=== PATIENT | female | born 2000 | race Caucasian/White ===

== ENCOUNTER 2021-07-25 03:44 | Emergency (ER) | payer OTHER, SELFPAY ==
--- NOTE | ~2021-07-25 | CT_ITS ---
EXAMINATION: CT abdomen pelvis w con INDICATION: Right lower quadrant pain TECHNIQUE: Computed tomographic images of the abdomen and pelvis were obtained after the administrati on of 100 cc of Omnipaque 350 intravenous contrast. The dose-length product (DLP) was 230.22 mGy-cm. Automated exposure control and iterative reconstruction technique were employed. COMPARISON: None available FINDINGS: The lung bases are clear. The heart size is normal. The liver, spleen, pancreas, gallbladde r, and adrenal glands are normal. The kidneys are unremarkable. No pathologically enlarged abdominal or pelvic lymph nodes are identified. There is no free intraperitoneal gas or evidence of bowel obstr uction. The appendix is normal. A large volume of colonic stool is present. There is a small volume of hyperattenuating material in the pelvis. There is a complex cystic lesion of the right adnexa. The visualized osseous structures are unremarkable. IMPRESSION: 1. Complex cystic lesion of the right adnexa with small amount of hyperattenuating fluid in the pelvi s. Findings could reflect ruptured ovarian cyst given the negative test. Follow-up ultrasou nd is recommended. Reviewed, dictated and finalized at location A. [facility] IMPRESSION: 1. Complex cystic lesion of the right adnexa with small amount of hyperattenuat ing fluid in the pelvis. Findings could reflect ruptured ovarian cyst given the negative test. Follow-up ultrasound is recommended.
[2021-07-25 03:56] VITALS: BP 127/94; PULSE 108; RESP 17; TEMP 36.6; O2SAT 97
--- NOTE | 2021-07-25 04:13 | ED.GENADULT ---
HPI - General Adult General Chief complaint: [employer]IDENT[employer] Stated complaint: abd pain and cramping Time Seen by Provider: 07/25/21 03:55 History of Present Illness HPI narrative: Is a 18-year-old female presents the emergency department with chief complaint of abdominal pain. Patient reports that this evening she had and reports around 1 AM and was not having any pain she went to sleep woke up around 3 AM with severe cramping in her low pelvis in her vaginal area. Patient denies bleeding denies discharge. Patient reports her last menstrual period was approximately 2 and half weeks ago patient states that said no fever no nausea reports the pain is worse with movement and improved with rest Related Data Allergies Allergy/AdvReac Type Severity Reaction Status Date / Time No Known Allergies Allergy Verified 07/25/21 04:00 Review of Systems Review of Systems: A 10 system review of systems was completed on the patient and is negative except for what is stated in the HPI. Nursing and ancillary documentation was reviewed. PMFSH Social History Social History Smoking status: Never smoker Alcohol intake: never Exam Narrative: GENERAL: Well-appearing, well-nourished, and in no acute distress. HEAD: Normocephalic, atraumatic. EYES: PERRLA and EOMI. ENT: Nares clear, no rhinorrhea or epistaxis. Mucous membranes moist. NECK: Supple. CHEST: Clear to auscultation. No respiratory distress. HEART: Regular rate and rhythm. No murmur heard. Normal peripheral pulses. ABDOMEN: Soft, diffuse tenderness in the pelvis worse in the right lower quadrant, nondistended, normal active bowel sounds. EXTREMITIES: Normal range of motion. No edema. SKIN: Warm, dry, no rash. NEURO: No focal deficits. Alert and oriented x3. PSYCH: Normal mood and affect. Course Course Emergency Course: CT scan showed evidence of a 2 cm ruptured ovarian cyst Vital Signs Vital signs: Vital Signs Temperature 36.6 C 07/25/21 03:56 Pulse Rate 108 H 07/25/21 03:56 Respiratory Rate 17 07/25/21 03:56 Blood Pressure 127/94 H 07/25/21 03:56 Pulse Oximetry 97 07/25/21 03:56 Temperature 36.6 C 07/25/21 03:56 Pulse Rate 78 07/25/21 05:21 Respiratory Rate 17 07/25/21 05:21 Blood Pressure 100/70 07/25/21 05:21 Pulse Oximetry 97 07/25/21 05:21 Medical Decision Making Vital Signs Vital Signs: Vital Signs Temperature 36.6 C 07/25/21 03:56 Pulse Rate 108 H 07/25/21 03:56 Respiratory Rate 17 07/25/21 03:56 Blood Pressure 127/94 H 07/25/21 03:56 Pulse Oximetry 97 07/25/21 03:56 Temperature 36.6 C 07/25/21 03:56 Pulse Rate 78 07/25/21 05:21 Respiratory Rate 17 07/25/21 05:21 Blood Pressure 100/70 07/25/21 05:21 Pulse Oximetry 97 07/25/21 05:21 Lab Data Result diagrams: 07/25/21 04:16 07/25/21 04:16 Labs: Lab Results 07/25/21 07/25/21 07/25/21 Range/Units 04:16 04:16 04:16 WBC 9.3 (4.5-10.0) K/mm3 RBC 4.03 L (4.2-5.4) M/mm3 Hgb 12.6 (12.0-15.0) g/dL Hct 36.2 L (37.0-47.0) % MCV 89.8 (80-100) fl MCH 31.3 (26-34) pg MCHC 34.8 (32-36) g/dl RDW 11.8 (11.5-14.5) % Plt Count 268 (150-375) k/mm3 MPV 10.0 (7.4-10.4) fl Immature Gran % (Auto) 0.1 (0-0.5) % Neut % (Auto) 50.1 (45.5-73.1) % Lymph % (Auto) 38.9 (18.3-44.2) % [place] % (Auto) 6.3 (2.6-8.5) % Eos % (Auto) 3.8 (0-4.4) % Baso % (Auto) 0.8 (0.2-1.2) % Lymph # (Auto) 3.61 H (0.9-3.2) K/mm3 [place] # (Auto) 0.6 (0.1-0.6) K/mm3 Eos # (Auto) 0.4 H (0-0.3) K/mm3 Baso # (Auto) 0.1 (0.0-0.1) K/mm3 Abs Immat Gran (auto) 0.01 (0.00-0.031) K/mm3 Absolute Neuts (auto) 4.7 (1.3-6.7) K/mm3 Absolute Nucleated RBC 0.0 (0.0-0.012) K/mm3 Nucleated RBC % 0.0 (0.0-0.2) % Sodium 139 (137-145) mmol/L Potassium 4.0 (3.4-5.0) mmol/L Chloride 105
[2021-07-25] MEDS: ONDANSETRON INJ 4 MG/2 ML VIAL IV PUSH (04:14)
[2021-07-25] MEDS: SODIUM CHLORIDE 0.9% IV 1,000 ML 999 ML IV CONT (04:14)
[2021-07-25] MEDS: MORPHINE SULFATE (*CRX) 4 MG/ML INJ IV PUSH (04:14)
[2021-07-25 04:26] LABS: Basophils Absolute Auto 0.1 K/mm3 (0.0-0.1); Basophils Percent Auto 0.8 % (0.2-1.2); Eosinophils Absolute Auto 0.4 K/mm3 (0-0.3); Eosinophils Percent Auto 3.8 % (0-4.4); Hematocrit 36.2 % (37.0-47.0); Hemoglobin 12.6 g/dL (12.0-15.0); Immature Granulocyte Absolute 0.01 K/mm3 (0.00-0.031); Immature Granulocyte Percent A 0.1 % (0-0.5); Lymphocytes Absolute Auto 3.61 K/mm3 (0.9-3.2); Lymphocytes Percent Auto 38.9 % (18.3-44.2); Mean Corpuscular HGB Conc 34.8 g/dl (32-36); Mean Corpuscular Hemoglobin 31.3 pg (26-34); Mean Corpuscular Volume 89.8 fl (80-100); Monocytes Absolute Auto 0.6 K/mm3 (0.1-0.6); Monocytes Percent Auto 6.3 % (2.6-8.5); Neutrophils Absolute Auto 4.7 K/mm3 (1.3-6.7); Neutrophils Percent Auto 50.1 % (45.5-73.1); Platelet Count Result 268 k/mm3 (150-375); Red Blood Count 4.03 M/mm3 (4.2-5.4); Red Cell Distribution Width 11.8 % (11.5-14.5); White Blood Count 9.3 K/mm3 (4.5-10.0)
[2021-07-25 04:34] LABS: Add Urine Microscopic? YES; Appearance Urine Clear (Clear); Bilirubin Urine Negative (Negative); Blood Urine Negative (Negative); Color Urine Yellow (Yellow); Glucose Urine UA Negative (Negative); Ketones Urine Trace mg/dL (Negative); Leukocyte Esterase Ur Negative LEU/UL (Negative); Mucus Urine Rare /lpf; Nitrate Urine Negative (Negative); Protein Urine Negative (Negative); RBC Urine 0-2 /hpf (0-2); Specific Grav Ur 1.014 (1.001-1.035); Squamous Epithelial Cell Urine Rare /hpf (Few); Urobilinogen Urine Negative mg/dL (<2.0); WBC Urine 0-3 /hpf
[2021-07-25 04:36] LABS: Alanine Aminotransferase 12 U/L (4-35); Albumin Level 4.7 g/dL (3.5-5.1); Alkaline Phosphatase 59 U/L (38-126); Anion Gap 14 mmol/L (8-16); Aspartate Amino Transferase 22 U/L (14-36); Bilirubin,Total 0.3 mg/dL (0.2-1.3); Blood Urea Nitrogen 11 mg/dL (7-17); Calcium 9.4 mg/dL (8.4-10.2); Carbon Dioxide 20 mmol/L (22-30); Chloride 105 mmol/L (98-107); Estimated CRCL calculation 132 ml/min; Estimated Glomerular Filt Rate > 60; Glucose 92 mg/dL (65-110); Lipase 49 U/L (23-300); Sodium 139 mmol/L (137-145)
--- NOTE | 2021-07-25 04:39 | PC.NURSE ---
Patient being taken to CT via stretcher.
[2021-07-25 05:21] VITALS: BP 100/70; PULSE 78; RESP 17; O2SAT 97
[2021-07-25 06:18] VITALS: BP 94/67; PULSE 88; RESP 17; O2SAT 98
== END 2021-07-25 06:20 | disposition home or self-care (01) ==
PROVIDERS: Emergency Provider Emergency Medicine; PCP Family Medicine
DX: N83.201 Unspecified ovarian cyst, right side (principal)
CPT/HCPCS: 36415; 74177; 80053; 81001; 81025; 83690; 85025; 96361; 96374; 96375; 99284; J2270; J2405; J7030; Q9967

== ENCOUNTER 2024-10-02 11:51 | Emergency (ER) | payer OTHER, SELFPAY ==
--- NOTE | ~2024-10-02 | CT_ITS ---
EXAMINATION: CT brain wo con DATE: 10/02/2024 13:02 INDICATION: Visual changes TECHNIQUE: Computed tomography (CT) of the head was performed without intravenous contrast. Sagittal and coronal reconstructions were performed. The mA was adjusted according to patient size. Iterative reconstruction technique was employed. The dose-length product was 605.33 mGy-cm. COMPARISON: None FINDINGS: No acute intracranial hemorrhage, acute infarction or abnormal extra axial fluid collection. Ventricl es are normal and symmetric. No mass/mass effect. There is mucosal thickening in the left ethmoid sin us. The orbits and mastoid air cells are normal. IMPRESSION: 1. Normal brain. No acute intracranial process. Reviewed, dictated and finalized at location A. [employer]
[2024-10-02 12:13] VITALS: BP 133/99; PULSE 86; RESP 16; TEMP 36.4; O2SAT 100
[2024-10-02 13:20] VITALS: BP 129/92; PULSE 68; RESP 14; O2SAT 100
[2024-10-02 13:30] VITALS: BP 126/85; PULSE 68; RESP 16; O2SAT 100
--- NOTE | 2024-10-02 13:31 | ED.GENADULT ---
HPI - General Adult General Chief complaint: Eye Problems Stated complaint: Hypertension, partial vision loss Rt eye Time Seen by Provider: 10/02/24 12:33 History of Present Illness HPI narrative: Patient is a 24-year-old female who presents emergency department with chief complaint of visual changes and blood pressure. Patient reports that 10:00 a.m. this morning she noticed she had dark line her visual field patient reports in the central portion of her eye patient reports that her periphery is normal and reports that she also did have some floaters of limits initial cardiac does have improved patient reports no eye trauma reports that she wears glasses but reports that her vision is otherwise normal patient states that she has had no trauma does report that her blood pressure was elevated when she was at work today and noticed that she has had a little bit of a runny nose. Related Data Home Medications ?Medication ?Instructions ?Recorded ?Confirmed ?Last Taken ?Type escitalopram oxalate 10 mg tablet 10 mg PO DAILY 10/02/24 10/02/24 10/02/24 History (Lexapro) omeprazole 40 mg capsule,delayed 40 mg PO DAILY 10/02/24 10/02/24 10/02/24 History release Allergies Allergy/AdvReac Type Severity Reaction Status Date / Time No Known Allergies Allergy Verified 10/02/24 13:31 Review of Systems Review of Systems: A 10 system review of systems was completed on the patient and is negative except for what is stated in the HPI. Nursing and ancillary documentation was reviewed. [facility] Social History Social History Smoking status: Never smoker Alcohol intake: never Exam Narrative: GENERAL: Well-appearing, well-nourished, and in no acute distress. HEAD: Normocephalic, atraumatic. EYES: PERRLA and EOMI. Negative fluorescein uptake intra-ocular pressures 10 visual acuity is 2019 in the right eye 2024 in the left eye ENT: Nares clear, no rhinorrhea or epistaxis. Mucous membranes moist. NECK: Supple. CHEST: Clear to auscultation. No respiratory distress. HEART: Regular rate and rhythm. No murmur heard. Normal peripheral pulses. ABDOMEN: Soft, nontender, nondistended, normal active bowel sounds. EXTREMITIES: Normal range of motion. No edema. SKIN: Warm, dry, no rash. NEURO: No focal deficits. Alert and oriented x3. PSYCH: Normal mood and affect. Course Vital Signs Vital signs: Vital Signs Temperature 36.4 C L 10/02/24 12:13 Pulse Rate 86 10/02/24 12:13 Respiratory Rate 16 10/02/24 12:13 Blood Pressure 133/99 H 10/02/24 12:13 Pulse Oximetry 100 10/02/24 12:13 Oxygen Delivery Room Air 10/02/24 12:13 Temperature 36.4 C L 10/02/24 12:13 Pulse Rate 76 10/02/24 15:00 Respiratory Rate 16 10/02/24 15:00 Blood Pressure 111/74 10/02/24 15:00 Pulse Oximetry 98 10/02/24 15:00 Oxygen Delivery Room Air 10/02/24 12:13 Medical Decision Making MDM Narrative Medical decision making narrative: Differential diagnosis includes retinal detachment, this stroke artery occlusion, corneal abrasion, acute angle closure glaucoma CT head showed no acute abnormality There was no fluorescein uptake Interocular pressure was 10 Visual acuity was 2020 in the right eye The case was discussed with the ophthalmology resident at [facility] who then recommended the patient be transferred to the emergency department for ophthalmological evaluation. The case was accepted by Dr. Gong The patient was offered EMS transfer and chose to have her drive her to the u er Vital Signs Vital Signs: Vital Signs Temperature 36.4 C L 10/02/24 12:13 Pulse Rate 86 10/02/24 12:13 Respiratory Rate 16 10/02/24 12:13 Blood Pressure 133/99 H 10/02/24 12:13 Pulse Oximetry 100 10/02/24 12:13 Oxygen Delivery Room Air 10/02/24 12:13 Temperature 36.4 C L 10/02/24 12:13 Pulse Rate 76 10/02/24 15:00 Respiratory Rate 16 10/02/24 15:00 Blood Pressure 111/74 10/02/24 15:00 Pulse Oximetry 98 10/02/24 15:00 Oxygen Delivery Room Air 10/02/24 12:13 Discharge Plan Discharge Clinical Impression: Visual changes Patient Disposition: Acute Care Hospital Condition: Stable Patient Language: Armenian Prescriptions: No Action omeprazole 40 mg capsule,delayed release(DR/EC) 40 mg PO DAILY escitalopram oxalate [Lexapro] 10 mg tablet 10 mg PO DAILY Follow-up/Referrals: Tamar,Ed Garcia MD [Primary Care Provider] - Time of Disposition: 13:52
[2024-10-02 14:00] VITALS: BP 127/79; PULSE 81; RESP 16; O2SAT 99
[2024-10-02 14:30] VITALS: BP 126/90; PULSE 68; RESP 16; O2SAT 100
[2024-10-02 15:00] VITALS: BP 111/74; PULSE 76; RESP 16; O2SAT 98
--- OUTSIDE RECORDS SUMMARY | 2024-10-04 00:09 | XMS_ITS | Clinical Summary ---
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 ur Negative Negative MARY KAY Comment:Testing performed by : [address], [place]., [address] Blood, ur 2+(A) Negative MARY KAY Comment:Testing performed by : [address], [place]., [address] Urobilinogen, ur <2.0 <2.0 mg/dL MARY KAY Comment:Testing performed by : [address] [address] Nitrite, ur Negative Negative MARY KAY Comment:Testing performed by : [address] [address] Leukocyte esterase, ur 2+(A) Negative MARY KAY Comment:Testing performed by : [address] [address] UA reflex comment Reflex to microscopic UA will be performed. MARY KAY Comment:Testing performed by : [address] [address] Urine 07/19/2024 7:07 PM AREA SUPERVISOR 07/19/2024 7:10 PM AREA SUPERVISOR Narrative MARY KAY - 07/19/2024 7:25 PM AREA SUPERVISOR If patient unable to urinate, straight cath Ambrosio Conner DO LAB MICROBIOLOGY - GENERAL ORD ERABLES Final Result Performing Organization Address [facility] Co de Phone Number MARY KAY [facility] [place] [address] * (ABNORMAL) Urinalysis, microscopic only (07/19/2024 7:07 PM AREA SUPERVISOR) WBC, ur 11-20(A) 0 - 5 /HPF Comment:Testing performed by : [facility], [address] [place] [address], [place]., [address] RBC, ur 3-5(A) 0 - 2 /HPF MARY KAY Comment:Testing performed by : [address], [place]., [address] Epithelial cells, squamous, ur >50(A) 0 - 5 /HPF MARY KAY Comment:Testing performed by : [facility], [address] [place] [address], [place]., [address] Mucous, ur Present(A) MARY KAY Comment:Testing performed by : [address], [place]., [address] Culture Reflex Comment Reflex to urine culture will be performed. MARY KAY Comment:Testing performed by : [address], [place]., [address] Urine 07/19/2024 7:07 PM AREA SUPERVISOR 07/19/2024 7:15 PM AREA SUPERVISOR us Ambrosio Conner DO LAB URINE ORDERABLES Final Res ult Performing Organization Address [facility] Co de Phone Number MARY KAY [facility] [place] [address] * Urine culture Urine (07/19/2024 7:07 PM AREA SUPERVISOR) Report Final Report: Growth indicative of contamination with periurethral triny. Please submit a new specimen with special attention given to the collection process and to prompt transport to the laboratory. Comment:Testing performed by : [facility], [address] [facility], [place]., [address] Organism GROWTH INDICATES CONTAM WITH PERIURETHRAL TRINY. MARY KAY Urine 07/19/2024 7:07 PM AREA SUPERVISOR 07/19/2024 9:16 PM AREA SUPERVISOR Narrative MARY KAY - 07/21/2024 1:29 PM AREA SUPERVISOR Urine culture reflexed based upon urinalysis results. Testing performed by [facility] Microbiology Laboratory ([phone]) Ambrosio Conner DO LAB MICROBIOLOGY - GENERAL ORD ERABLES Final Result Performing Organization Address [facility] de Phone Number [place] [address] [place] [address] * Sepsis Lactate w/ Reflex (07/19/2024 6:59 PM AREA SUPERVISOR) Sepsis Lactate 0.8 0.7 - 2.0 mmol/L Comment:Testing performed by : [facility], [address] [place] [address]., [address] Blood 07/19/2024 6:59 PM AREA SUPERVISOR 07/19/2024 7:08 PM AREA SUPERVISOR Ambrosio Conner DO LAB BLOOD ORDERABLES Final Res ult Performing Organization Address [facility] de Phone Number [address] [place] [address] * eGFR (07/19/2024 6:59 PM AREA SUPERVISOR) eGFR >90 >=60 mL/min/1. 73 m2 Comment: Interpretive Data Reference Interval Normal ?>/= 90 mL/min/1.73m2 Mildly decreased* ? 60 - 89 mL/min/1.73m2 Mildly to moderately decreased ?45 - 59 mL/min/1.73m2 Moderately to severely decreased ??30 - 44 mL/min/1.73m2 Severely decreased ?15 - 29 mL/min/1.73m2 Kidney Failure ?< 15 ??mL/min/1.73m2 *Relative to young adult level Estimated glomerular filtration rate is determined by the 2020 CKD-EPI equation recommended by the National Kid[employer] (A Unifying Approach to GFR Estimation: Recommendations of the NKF-ASK Task Force on Reassessing the Inclusion of Race in Diagnosing Kidney Disease, JASN 2020). The CKD-EPI equation should not be used for patients with unstable renal function and has not been validated in children and those over 70. Current interpretive data was last reviewed 2021. Testing performed by: [address] [address] Blood 07/19/2024 6:59 PM AREA SUPERVISOR 07/19/2024 7:07 PM AREA SUPERVISOR us Ambrosio Conner DO LAB BLOOD ORDERABLES Final Res ult MARY KAY [address] [facility] Department [place] [address] * (ABNORMAL) Differential, auto (07/19/2024 6:59 PM AREA SUPERVISOR) Neutrophil abs 8.8(H) 1.5 - 6.5 K/cumm Comment:Testing performed by : [address] [address] Imm gran abs 0.0 0.0 - 0.1 K/cumm MARY KAY Comment:Testing performed by : [address] [address] Lymphocyte abs 1.1 0.8 - 3.3 K/cumm MARY KAY Comment:Testing performed by : [address] [address] Monocyte abs 0.5 0.2 - 0.8 K/cumm MARY KAY Comment:Testing performed by : [address] [address] Eosinophil abs 0.3 0.0 - 0.5 K/cumm MARY KAY Comment:Testing performed by : [address] [address] Basophil abs 0.1 0.0 - 0.1 K/cumm MARY KAY Comment:Testing performed by : [address] [address] Neutrophil pct 81.0 % MARY KAY Comment: Interpretive Data Percent cell count reference ranges are not reported, since discordance with absolute values may lead to misinterpretation of CBC data. Current Interpretive Data was last revised on 2017. Testing performed by: [address] [address] Imm gran pct 0.3 % MARY KAY Comment: Interpretive Data Percent cell count reference ranges are not reported, since discordance with absolute values may lead to misinterpretation of CBC data. Current Interpretive Data was last revised on 2017. Testing performed by: [address] [address] Lymphocyte pct 10.4 % MARY KAY Comment: Interpretive Data Percent cell count reference ranges are not reported, since discordance with absolute values may lead to misinterpretation of CBC data. Current Interpretive Data was last revised on 2017. Testing performed by: [address] [address] Monocyte pct 4.8 % MARY KAY Comment: Interpretive Data Percent cell count reference ranges are not reported, since discordance with absolute values may lead to misinterpretation of CBC data. Current Interpretive Data was last revised on 2017. Testing performed by: [address] [address] Eosinophil pct 3.0 % MARY KAY Comment: Interpretive Data Percent cell count reference ranges are not reported, since discordance with absolute values may lead to misinterpretation of CBC data. Current Interpretive Data was last revised on 2017. Testing performed by: [address] [address] Basophil pct 0.5 % [facility] Comment: Interpretive Data Percent cell count reference ranges are not reported, since discordance with absolute values may lead to misinterpretation of CBC data. Current Interpretive Data was last revised on 2017. Testing performed by: [address] [address] Blood 07/19/2024 6:59 PM AREA SUPERVISOR 07/19/2024 7:07 PM AREA SUPERVISOR us Ambrosio Conner DO LAB BLOOD ORDERABLES Final Res ult MARY KAY [address] [facility] [place] [address] * (ABNORMAL) CBC with auto differential (07/19/2024 6:59 PM AREA SUPERVISOR) WBC 10.8(H) 3.8 - 9.9 K/cumm Comment:Testing performed by : [address] [address] Hgb 12.6 11.9 - 15.5 g/dL MARY KYA Comment:Testing performed by : [address] [address] Hct 38.3 35.6 - 45.5 % MARY KAY Comment:Testing performed by : [address] [address] Plt 250 150 - 400 K/cumm MARY KAY Comment:Testing performed by : [address] [address] MPV 10.2 9.1 - 12.3 fL MARY KAY Comment:Testing performed by : [address] [address] RBC 4.39 3.90 - 5.20 M/cumm MARY KAY Comment:Testing performed by : [address] [address] MCV 87.2 81.3 - 96.4 fL MARY KAY Comment:Testing performed by : [address] [address] MCH 28.7 27.1 - 33.3 pg MARY KAY SANTANA Comment:Testing performed by : [address] [address] MCHC 32.9 32.3 - 35.7 g/dL MARY KAY SANTANA Comment:Testing performed by : [address] [address] RDW CV 14.6 11.1 - 14.9 % MARY KAY Comment:Testing performed by : [address] [address] RDW SD 46.9 35.7 - 48.1 fL MARY KAY SANTANA Comment:Testing performed by : [address] [address] NRBC abs 0.00 0.00 - 0.01 K/cumm MARY KAY SANTANA Comment:Testing performed by : [address] [address] Blood 07/19/2024 6:59 PM AREA SUPERVISOR 07/19/2024 7:07 PM AREA SUPERVISOR us Ambrosio Conner DO LAB BLOOD ORDERABLES Final Res ult MARY KAY SANTANA [address] [facility] Department [place] [address] * Comprehensive metabolic panel (07/19/2024 6:59 PM AREA SUPERVISOR) Sodium 138 135 - 145 mmol/L Comment:Testing performed by : [address] [address] Potassium, pl 4.0 3.3 - 4.9 mmol/L MARY KAY SANTANA Comment:Testing performed by : [address] [address] Chloride 102 97 - 110 mmol/L MARY KAY Comment:Testing performed by : [address] [address] CO2 25 22 - 32 mmol/L MARY KAY Comment:Testing performed by : [address] [address] Anion gap 11 2 - 15 mmol/L MARY KAY Comment:Testing performed by : [address] [address] BUN 11 6 - 25 mg/dL MARY KAY SANTANA Comment:Testing performed by : [address] [address] Creatinine 0.60 0.60 - 1.10 mg/dL MARY KAY SANTANA Comment:Testing performed by : [address] [address] Glucose 113 70 - 199 mg/dL MARY KAY Comment: Interpretive Data Fasting glucose >/= 126 mg/dl is diagnostic for diabetes. ?? Fasting is defined as no caloric intake for at least 8 hours. Fasting glucose between 100 mg/dl to 125 mg/dl is diagnostic of prediabetes. In a patient with classic symptoms of hyperglycemia or hyperglycemic crisis, a random glucose >/= 200 mg/dl is diagnostic for diabetes. In the absence of unequivocal hyperglycemia, results should be confirmed by repeat testing. The classification and Diagnosis of Diabetes Diabetes Care 2021; 46: S19-S40. Current interpretive data was last revised 2022. Testing performed by: [address] [address] Calcium 9.7 8.5 - 10.3 mg/dL MARY KAY Comment:Testing performed by : [address] [address] Bilirubin, total 0.2 0.1 - 1.2 mg/dL MARY KAY Comment:Testing performed by : [address] [address] Protein, pl 7.5 6.5 - 8.5 g/dL MARY KAY Comment:Testing performed by : [address] [address] Albumin 4.5 3.5 - 5.0 g/dL MARY KAY Comment:Testing performed by : [address] [address] Alk phos 93 40 - 130 Units/L MARY KAY Comment:Testing performed by : [address] [address] ALT 24 7 - 45 Units/L MARY KAY Comment:Testing performed by : [address] [address] AST 21 10 - 45 Units/L MARY KAY Comment:Testing performed by : [address] [address] Blood 07/19/2024 6:59 PM AREA SUPERVISOR 07/19/2024 7:07 PM AREA SUPERVISOR Ambrosio Slowik DO LAB BLOOD ORDERABLES Final Res ult Performing Organization Address City/[facility]/ZIP Co de Phone Number [facility] [address] [facility] Department [place] [address] * Hepatitis C antibody Blood (10/26/2023 11:17 AM AREA SUPERVISOR) Hep C Ab Nonreactive Nonreactive [facility] Comment: Interpretive Data Nonreactive: Antibodies to HCV not detected. Does NOT exclude the possibility of recent exposure to HCV. Equivocal: Equivocal for HCV antibodies. Supplemental molecular testing will be automatically performed to determine infection status in accordance with current CDC screening recommendations. ?? Reactive: Positive for HCV antibodies. ??This may represent current or past HCV infection. Supplemental molecular testing will be automatically performed to determine ??current infection status in accordance with current CDC screening recommendations. Interpretive data was last revised on 2019. Blood 10/26/2023 11:1 7 AM AREA SUPERVISOR 10/26/2023 7:37 PM AREA SUPERVISOR Leslie Kimbrough MD LAB MICROBIOLOGY - GENERAL OR DERABLES Edited Result - Final Performing Organization Address [facility] Co de Phone Number [facility] [address] [place] [address] * Pap with reflex to High Risk HPV (02/10/2023 2:13 PM CDT) Thin prep (Pap test) 02/10/2023 2:13 PM CDT 02/15/2023 10:12 AM CDT Narrative PATHOLOGY [facility] - 02/17/2023 3:02 PM CDT EPIC results best viewed via link to PDF [place] [id number] [place], [place] ??[address] Tele: ?? Sue Beck MD - Forensic Specialist CYTOLOGY REPORT Note to Patients: This report may contain a detailed description of human tissue sent by a health care provider to the laboratory for pathologic evaluation. The content of this report is essential for diagnosis and may provide important critical findings. This information may be unfamiliar to patients to review without a medical professional present. It is advised that the patient review this report in the presence of a health care provider who can answer questions and explain the details. Patient Name: ??DEYSI GUERRIER Address: ??[address] , [place], [place] Gender: ??F : ??2000 (Age: 22) Service: ?? Location: ?? Hospital #: ??[id number] Patient Type: ??[facility] SPECIMEN Taken: ??02/10/2023 Reported: ??02/17/2023 Physician(s): ? Leslie Kimbrough M.D. FINAL DIAGNOSIS: SOURCE OF SPECIMEN ?- ThinPrep Pap w/ reflex HPV: STATEMENT OF ADEQUACY Source: ??Cervical/Endocervical ?- Satisfactory for interpretation ?- Endocervical /Transformation Zone component present ?- Case screened using computer assisted imaging technology ? GENERAL CATEGORIZATION: ?- Negative for intraepithelial lesion or malignancy ? morena02/17/2023 15:02AMOR Roldan(ASCP), CFIAC Report Reviewed and Electronically Signed By ??AMOR Roldan(ASCP), CFIACClerical Data Follow A; [id number] CLINICAL DIAGNOSIS AND HISTORY Last Menstrual Period: 02/03/23 Menstrual History: Regular Cycles Contraceptive History: No REPORT IMAGES AND/OR SCANNED DOCUMENTS ONLY VIEWABLE IN PDF FORMAT The Pap test is a screening test used to aid in the detection of cervical cancer and its precursors. It should not be the sole means by which malignant and premalignant lesions are diagnosed. ??Both false negative and false positive results may occur. ??It also has poor sensitivity for the detection of endometrial lesions and should not be used to evaluate suspected endometrial abnormalities. ??For these reasons it is most important to obtain Pap tests at regular intervals, as recommended by your physician or nurse practitioner. us Leslie Kimbrough MD LAB CYTOLOGY ORDERABLES Final Result PATHOLOGY [facility] Laboratory [address] [place] [address] from Last 3 Months or Most Recently Relevant to Health Maintenance Insurance [facility] [employer] [facility] [facility] [employer] Address: [place] [address] [facility] Address: [place] [address] [facility] [facility] [facility] Address: [facility] [id number] [place] [address] Advance Directives For more information, please contact: [phone] * Full Code (Latest Code Status on File) Date Activated Date Inactivated Comments 05/30/2024 1:54 AM 06/02/2024 2:56 AM * Full Code Date Activated Date Inactivated Comments 05/29/2024 4:57 PM 05/30/2024 1:54 AM Full CPR in case of cardiopulmonary arrest * Full Code Date Activated Date Inactivated Comments 04/30/2024 10:55 PM 05/01/2024 9:16 PM * Full Code Date Activated Date Inactivated Comments 04/24/2024 1:18 PM 04/27/2024 4:41 PM Care Teams Senior Account Executive Relationship Specialty Start Date End Date Ed Boyle MD [address] [facility] [address] [place] [address] PCP - General Family Medicine 04/05/22 Leslie Kimbrough MD [address] [facility] [address] [place] [address] Consulting Physician Obstetrics and Gynecology 11/11/22
--- OUTSIDE RECORDS SUMMARY | 2024-10-04 00:09 | XMS_ITS | Referral Summary ---
Author Organization [facility] B Address [address] [place] [phone] Care Team Providers Care Informatics Spec Name Role Phone Ed Boyle MD Primary Care Provider + Leslie Kimbrough MD Unavailable Encounters Date Type Department Care Team Description 10/02/2024 Nurse Triage [facility] Primary Care [address] [place] [phone] Ed Boyle MD 09/26/2024 5:00 PM WEB INTERFACE DEVELOPER Therapy [facility] [address] [place] [address] [place] [phone] Aicha Vallejo DPT Pelvic floor weakness in female (Primary Dx) 09/13/2024 Plan of Care Documentation [facility] [address] [place] [address] Floor [address] [place] [phone] 09/12/2024 4:00 PM WEB INTERFACE DEVELOPER Therapy [facility] [address] [place] [address] Floor [address] [place] [phone] Aicha Vallejo DPT Pelvic floor weakness in female (Primary Dx) 07/31/2024 1:15 PM WEB INTERFACE DEVELOPER Office Visit [facility] Primary Care [address] [place] [phone] Ed Boyle MD STEVO (generalized anxiety disorder) (Primary Dx); Gastroesophageal reflux disease without esophagitis; Encounter for immunization 07/19/2024 8:42 PM WEB INTERFACE DEVELOPER - 07/19/2024 9:58 PM WEB INTERFACE DEVELOPER Emergency [facility] Emergency Department [address] [place], [place] [phone] Mastitis (Primary Dx) Discharge Disposition: Discharge to home or self care 07/17/2024 11:45 AM WEB INTERFACE DEVELOPER Office Visit [facility] [address] [place] [address] [address], [place] [address] Leslie Kimbrough MD Encounter for care and examination after delivery (Primary Dx); Pelvic floor weakness in female; Consultation for female sterilization 07/11/2024 Telephone [facility] [address] [facility] [address] [place] [address] Elaine Yousif MA Prior Auth from Last 3 Months Allergies Active Allergy Reactions Criticality Noted Date [...] nightly 90 capsule 2 2 Active 26-iron [id number] 29 mg iron- 1 mg-200 mg capsule [...] mouth daily 90 tablet 3 4 07/31/20 25 Active omeprazole (PriLOSEC) 40 mg capsuleIndication s:Gastroesophagea [...] 05/02/2023 Assessment & Plan (07/31/2024 1:32 PM WEB INTERFACE DEVELOPER): - stable - continue lexapro - f/u in 6 mo Assessment & Plan (08/11/2023 8:03 AM WEB INTERFACE DEVELOPER): - stable - continue current medication Assessment & Plan (05/02/2023 10:51 AM CDT): - uncontrolled - start lexapro 10mg daily - ref to counseling - f/u in 6 wks Gastroesophageal reflux disease without esophagi tis 08/19/2022 Assessment & Plan (07/31/2024 1:32 PM WEB INTERFACE DEVELOPER): - stable - continue omeprazole, famotidine Assessment & Plan (08/11/2023 8:04 AM WEB INTERFACE DEVELOPER): - uncontrolled - increase omeprazole to 40mg [...] loss Assessment & Plan (08/19/2022 9:22 AM WEB INTERFACE DEVELOPER): Chronic, takes Pepcid p.r.n. -start omeprazole 20 [...] 14 wks triage visit, neuro consult at [facility]. Normal MRI; Tylenol and Compazine prn GERD - omeprazole 40 mg daily, adds Pepcid PRN PTL - cervix /-3 at 33 weeks, nifedipine 10 q.6 until 36 weeks, received steroids 33 weeks Anemia - start daily slow FE 1st Trimester: [x] Dating Criteria: 1st tri [x] Labs: Lab Results Component Value Date HEPBSAG Nonreactive 10/26/2023 HEPCAB Nonreactive 10/26/2023 Lab Results Component Value Date [id number] Nonreactive 10/26/2023 Lab Results Component Value Date [...] 04/27/2024 Assessment & Plan (08/19/2022 9:25 AM WEB INTERFACE DEVELOPER): Intermittent bright red blood per rectum since [...] (08/19/2022): Added automatically from request for surgery [id number] Assessment & Plan (12/22/2022 9:51 AM CDT): Patient describes having constipation alternating with diarrhea. Colonoscopy November 2022 with biopsies negative for microscopic colitis. Suspect overflow diarrhea. -complete previously ordered stool studies Assessment & Plan (08/19/2022 9:24 AM WEB INTERFACE DEVELOPER): Patient describes having constipation alternating with diarrhea. [...] evaluation Assessment & Plan (08/19/2022 9:24 AM WEB INTERFACE DEVELOPER): Epigastric/right upper quadrant abdominal pain since March [...] a bowel movement. No improvement despite multiple cwbk-ncs-kecxkrz laxatives including MiraLax daily and enemas. Suspect secondary to IBS-C -high-fiber diet -MiraLax daily p.r.n. -we will start Linzess 145 mcg p.o. daily (samples given) Assessment & Plan (08/19/2022 9:25 AM WEB INTERFACE DEVELOPER): Patient has constipation, can go up to [...] p.r.n. Assessment & Plan (08/19/2022 9:25 AM WEB INTERFACE DEVELOPER): Assessment & Plan (06/22/2022 4:18 PM CDT): [...] 04/27/2024 Assessment & Plan (08/11/2023 8:04 AM WEB INTERFACE DEVELOPER): - stable - continue current medication Assessment [...] pain. Assessment & Plan (07/31/2021 8:25 PM WEB INTERFACE DEVELOPER): Pt brought [facility] abd [facility] with her. She has a complex cyst of right ovary. Refill given of hydrocodone and ibuprofen. Discussed alternating medication. Note given for work. Referral to DEGREASER OPERATOR and appt obtained for this Monday. Right [...] monitor. Assessment & Plan (07/22/2021 2:13 PM WEB INTERFACE DEVELOPER): With palpation. Discussed options with patient. Urine [...] as tolerated Abdominal pain, generalized 05/17/2012 04/27/2024 Immunizations Name Administration Dates Next Due Influenza, Quadrivalent, Spl it, Preservative Free, Intramuscular 06/21/2023,05/25/2021 Influenza, Trivalent, Preservative Free, Intramu scular 07/31/2024 Influenza, Unspecified 06/21/2022,06/11/2020 Meningococcal MCV4P (Menactra) 05/24/2016 Tdap 04/17/2024,04/03/2015 Varicella 07/13/2021,04/23/2021 Social History Tobacco Use Types Packs/Day Years [...] staff should administer the PHQ-9) 0 04/17/2024 [facility] - Occupational Stress Questionnaire Answer Date Recorded [...] things needed for daily living? No 04/01/2024 [place] Depression Scale Answer Date Recorded [place] Depression Scale Total 5 07/17/2024 The thought [...] any time in the past 12 m [facility], were you homeless or living in a care home (including now)? No 04/01/2024 Personal Safety Answer Date Recorded Have you ever been in or are you currently in a harmful physical or emotional relationship or is someone making you feel afraid or unsafe? Denies 07/19/2024 Comments No Sex and Gender Information Value Date Recorded Sex Assigned at Not on file Legal Sex Female 9:10 AM WEB INTERFACE DEVELOPER Gender Identity Female 05/06/2021 5:33 PM CDT Sexual Orientation Not on file Last Filed Vital Signs Vital Sign Reading Time Taken Comments Blood Pressure 112/64 07/31/2024 1:16 PM WEB INTERFACE DEVELOPER Pulse 74 07/31/2024 1:16 PM WEB INTERFACE DEVELOPER Temperature 36.4 ??C (97.6 ??F) 07/31/2024 1:16 PM CS T Respiratory Rate 20 07/31/2024 1:16 PM WEB INTERFACE DEVELOPER Oxygen Saturation 99% 07/31/2024 1:16 PM WEB INTERFACE DEVELOPER Inhaled Oxygen Concentration - - Weight 69.2 kg (152 lb 9.6 oz) 07/31/2024 1:16 P M WEB INTERFACE DEVELOPER Height 170.2 cm (5' 7.01 ) 07/31/2024 1:16 PM CS T Body Mass Index 23.89 07/31/2024 1:16 PM WEB INTERFACE DEVELOPER Plan of Treatment Not on file Procedures Procedure Name Priority Date/Time Associated Diagnosis Comments URINALYSIS, MICROSCOPIC ONLY STAT 07/19/2024 7:07 PM WEB INTERFACE DEVELOPER URINE CULTURE STAT 07/19/2024 7:07 PM WEB INTERFACE DEVELOPER URINALYSIS AND REFLEX TO MICROSCOPIC AND CULTURE STAT 07/19/2024 7:07 PM WEB INTERFACE DEVELOPER EGFR STAT 07/19/2024 6:59 PM WEB INTERFACE DEVELOPER DIFFERENTIAL AUTO STAT 07/19/2024 6:5 9 PM WEB INTERFACE DEVELOPER SEPSIS LACTATE WITH REFLEX Routine 07/19/2024 6:59 PM WEB INTERFACE DEVELOPER COMPREHENSIVE METABOLIC PANEL STAT 07/19/2024 6:59 PM WEB INTERFACE DEVELOPER CBC WITH AUTO DIFFERENTIAL STAT 07/19/2024 6:59 PM WEB INTERFACE DEVELOPER HEPATITIS C ANTIBODY Routine 10/26/2023 11:17 AM WEB INTERFACE DEVELOPER First trimester Elevated prolactin level PAP WITH [...] microscopic and culture Urine (07/19/2024 7:07 PM WEB INTERFACE DEVELOPER) Color, ur Yellow Yellow Comment:Testing performed by : [address] [address] Clarity, ur Clear Clear MAR YKAY Comment:Testing performed by : [address] [address] Specific gravity, ur 1.017 1.003 - 1.030 MARY KAY Comment:Testing performed by : [address] [address] pH, urine 5.5 MARY KAY Comment: Interpretive Data ? Urine pH is affected by diet, medications, systemic acid-base disturbances, and renal tubular function. ??pH may affect urinary stone formation. ??For example, urine pH below 6.0 may help reduce the tendency for calcium phosphate stones and pH greater than 6.0 may reduce the tendency for uric acid stone formation. Source: [facility] tabulate Current Interpretive Data was last revised on 2017 Testing performed by: [address] [address] Protein, ur ql Negative Negative MARY KAY Comment:Testing performed by : [address] [address] Glucose, ur ql Negative Negative MARY KAY Comment:Testing performed by : [address] [address] Ketones, ur Negative Negative MARY KAY Comment:Testing performed by : [address] [address] Bilirubin, ur Negative Negative MARY KAY Comment:Testing performed by : [address] [address] Blood, ur 2+(A) Negative MARY KAY Comment:Testing performed by : [address] [address] Urobilinogen, ur <2.0 <2.0 mg/dL MARY KAY Comment:Testing performed by : [address], [place]., [address] Nitrite, ur Negative Negative MARY KAY Comment:Testing performed by : [address] [address] Leukocyte esterase, ur 2+(A) Negative MARY KAY Comment:Testing performed by : [address], [place]., [address] UA reflex comment Reflex to microscopic UA will be performed. MARY KAY Comment:Testing performed by : [address], [place]., [address] Urine 07/19/2024 7:07 PM WEB INTERFACE DEVELOPER 07/19/2024 7:10 PM WEB INTERFACE DEVELOPER Narrative MARY KAY - 07/19/2024 7:25 PM WEB INTERFACE DEVELOPER If patient unable to urinate, straight cath us Ambrosio Conner DO LAB MICROBIOLOGY - GENERAL ORD ERABLES Final Result MARY KAY [address] [facility] Department [place] [address] * (ABNORMAL) Urinalysis, microscopic only (07/19/2024 7:07 PM WEB INTERFACE DEVELOPER) WBC, ur 11-20(A) 0 - 5 /HPF Comment:Testing performed by : [address] [address] RBC, ur 3-5(A) 0 - 2 /HPF MARY KAY Comment:Testing performed by : [address] [address] Epithelial cells, squamous, ur >50(A) 0 - 5 /HPF MARY KAY Comment:Testing performed by : [address], [place]., [address] Mucous, ur Present(A) MARY KAY Comment:Testing performed by : [address] [address] Culture Reflex Comment Reflex to urine culture will be performed. [facility] Comment:Testing performed by : [facility], [address] [place] [address]., [address] Urine 07/19/2024 7:07 PM WEB INTERFACE DEVELOPER 07/19/2024 7:15 PM WEB INTERFACE DEVELOPER Ambrosio Conner DO LAB URINE ORDERABLES Final Res ult Performing Organization Address [facility] de Phone Number [place] [phone] [facility] [place] [address] * Urine culture Urine (07/19/2024 7:07 PM WEB INTERFACE DEVELOPER) Report Final Report: Growth indicative of contamination with periurethral triny. Please submit a new specimen with special attention given to the collection process and to prompt transport to the laboratory. Comment:Testing performed by : [facility], [address] [place]., [address] Organism GROWTH INDICATES CONTAM WITH PERIURETHRAL TRINY. MARY KAY Urine 07/19/2024 7:07 PM WEB INTERFACE DEVELOPER 07/19/2024 9:16 PM WEB INTERFACE DEVELOPER Narrative [facility] - 07/21/2024 1:29 PM WEB INTERFACE DEVELOPER Urine culture reflexed based upon urinalysis results. Testing performed by [facility] Microbiology Laboratory ([phone]) Ambrosio Conner DO LAB MICROBIOLOGY - GENERAL ORD ERABLES Final Result Performing Organization Address [facility] de Phone Number [facility] [address] [facility] Department [place] [address] * Sepsis Lactate w/ Reflex (07/19/2024 6:59 PM WEB INTERFACE DEVELOPER) Sepsis Lactate 0.8 0.7 - 2.0 mmol/L Comment:Testing performed by : [facility], [address] [place] [address]., [address] Blood 07/19/2024 6:59 PM WEB INTERFACE DEVELOPER 07/19/2024 7:08 PM WEB INTERFACE DEVELOPER us Ambrosio Conner DO LAB BLOOD ORDERABLES Final Res ult Performing Organization Address City/[facility]/ZIP Co de Phone Number MARY KAY [address] [facility] [employer] [place] [address] * eGFR (07/19/2024 6:59 PM WEB INTERFACE DEVELOPER) eGFR >90 >=60 mL/min/1. 73 m2 Comment: [...] was last reviewed 2021. Testing performed by: [facility], [address] [place] [address]., [address] Blood 07/19/2024 6:59 PM WEB INTERFACE DEVELOPER 07/19/2024 7:07 PM WEB INTERFACE DEVELOPER us Ambrosio Conner DO LAB BLOOD ORDERABLES Final Res ult Performing Organization Address City/[facility]/ZIP Co de Phone Number MARY KAY [address] [facility] [employer] [place] [address] * (ABNORMAL) Differential, auto (07/19/2024 6:59 PM WEB INTERFACE DEVELOPER) Neutrophil abs 8.8(H) 1.5 - 6.5 K/cumm Comment:Testing performed by : [address] [address] Imm gran abs 0.0 0.0 - 0.1 K/cumm MARY KAY Comment:Testing performed by : [address] [address] Lymphocyte abs 1.1 0.8 - 3.3 K/cumm [facility] Comment:Testing performed by : [address] [address] Monocyte abs 0.5 0.2 - 0.8 K/cumm [facility] Comment:Testing performed by : [address] [address] Eosinophil abs 0.3 0.0 - 0.5 K/cumm [facility] Comment:Testing performed by : [address] [address] Basophil abs 0.1 0.0 - 0.1 K/cumm [facility] Comment:Testing performed by : [address] [address] Neutrophil pct 81.0 % [facility] Comment: Interpretive Data Percent cell count reference ranges are not reported, since discordance with absolute values may lead to misinterpretation of CBC data. Current Interpretive Data was last revised on 2017. Testing performed by: [address] [address] Imm gran pct 0.3 % [facility] Comment: Interpretive Data Percent cell count reference ranges are not reported, since discordance with absolute values may lead to misinterpretation of CBC data. Current Interpretive Data was last revised on 2017. Testing performed by: [address] [address] Lymphocyte pct 10.4 % [facility] Comment: Interpretive Data Percent cell count reference ranges are not reported, since discordance with absolute values may lead to misinterpretation of CBC data. Current Interpretive Data was last revised on 2017. Testing performed by: [address] [address] Monocyte pct 4.8 % MARY KAY Comment: Interpretive Data Percent cell count reference ranges are not reported, since discordance with absolute values may lead to misinterpretation of CBC data. Current Interpretive Data was last revised on 2017. Testing performed by: [address] [address] Eosinophil pct 3.0 % MARY KAY Comment: Interpretive Data Percent cell count reference ranges are not reported, since discordance with absolute values may lead to misinterpretation of CBC data. Current Interpretive Data was last revised on 2017. Testing performed by: [address] [address] Basophil pct 0.5 % MARY KAY Comment: Interpretive Data Percent cell count reference ranges are not reported, since discordance with absolute values may lead to misinterpretation of CBC data. Current Interpretive Data was last revised on 2017. Testing performed by: [address] [address] Blood 07/19/2024 6:59 PM WEB INTERFACE DEVELOPER 07/19/2024 7:07 PM WEB INTERFACE DEVELOPER us Ambrosio Conner DO LAB BLOOD ORDERABLES Final Res ult [facility] [address] [facility] Department [place] [address] * (ABNORMAL) CBC with auto differential (07/19/2024 6:59 PM WEB INTERFACE DEVELOPER) WBC 10.8(H) 3.8 - 9.9 K/cumm Comment:Testing performed by : [address] [address] Hgb 12.6 11.9 - 15.5 g/dL MARY KAY Comment:Testing performed by : [address] [address] Hct 38.3 35.6 - 45.5 % MARY KAY Comment:Testing performed by : [address] [place]., [address] Plt 250 150 - 400 K/cumm MARY KAY Comment:Testing performed by : [facility], [address] [place] [address]., [address] MPV 10.2 9.1 - 12.3 fL MARY KAY Comment:Testing performed by : [address] [address] RBC 4.39 3.90 - 5.20 M/cumm MARY KAY Comment:Testing performed by : [address] [address] MCV 87.2 81.3 - 96.4 fL MARY KAY Comment:Testing performed by : [address] [address] MCH 28.7 27.1 - 33.3 pg MARY KAY Comment:Testing performed by : [address] [address] MCHC 32.9 32.3 - 35.7 g/dL MARY KAY Comment:Testing performed by : [address], [address] RDW CV 14.6 11.1 - 14.9 % MARY KAY Comment:Testing performed by : [address], [address] RDW SD 46.9 35.7 - 48.1 fL MARY KAY Comment:Testing performed by : [address] [address] NRBC abs 0.00 0.00 - 0.01 K/cumm MARY KAY Comment:Testing performed by : [address] [address] Blood 07/19/2024 6:59 PM WEB INTERFACE DEVELOPER 07/19/2024 7:07 PM WEB INTERFACE DEVELOPER Ambrosio Conner DO LAB BLOOD ORDERABLES Final Res ult MARY KAY [address] [facility] Department of Laboratories [place], [place] [id number] * Comprehensive metabolic panel (07/19/2024 6:59 PM WEB INTERFACE DEVELOPER) [facility] Sodium 138 135 - 145 mmol/L Comment:Testing performed by : [address] [address] Potassium, pl 4.0 3.3 - 4.9 mmol/L MARY KAY Comment:Testing performed by : [address], [place]., [address] Chloride 102 97 - 110 mmol/L MARY KAY Comment:Testing performed by : [address], [place]., [address] CO2 25 22 - 32 mmol/L MARY KAY Comment:Testing performed by : [address], [place]., [address] Anion gap 11 2 - 15 mmol/L MARY KAY Comment:Testing performed by : [address], [place]., [address] BUN 11 6 - 25 mg/dL MARY KAY Comment:Testing performed by : [address], [place]., [address] Creatinine 0.60 0.60 - 1.10 mg/dL MARY KAY Comment:Testing performed by : [address], [place]., [address] Glucose 113 70 - 199 mg/dL [facility] Comment: Interpretive Data Fasting glucose >/= 126 [...] classification and Diagnosis of Diabetes Diabetes Care 202; 46: S19-S40. Current interpretive data was last revised 2022. Testing performed by: [address] [address] Calcium 9.7 8.5 - 10.3 mg/dL MARY KAY Comment:Testing performed by : [address], [place]., [address] Bilirubin, total 0.2 0.1 - 1.2 mg/dL MARY KAY Comment:Testing performed by : [address] [address] Protein, pl 7.5 6.5 - 8.5 g/dL MARY KAY Comment:Testing performed by : [address] [address] Albumin 4.5 3.5 - 5.0 g/dL MARY KAY Comment:Testing performed by : [address] [address] Alk phos 93 40 - 130 Units/L MARY KAY Comment:Testing performed by : [address] [address] ALT 24 7 - 45 Units/L MARY KAY Comment:Testing performed by : [address] [address] AST 21 10 - 45 Units/L MARY KAY Comment:Testing performed by : [address] [address] Blood 07/19/2024 6:59 PM WEB INTERFACE DEVELOPER 07/19/2024 7:07 PM WEB INTERFACE DEVELOPER Ambrosio Conner DO LAB BLOOD ORDERABLES Final Res ult MARY KAY [address] [facility] Department [place] [address] * Hepatitis C antibody Blood (10/26/2023 11:17 AM WEB INTERFACE DEVELOPER) Hep C Ab Nonreactive Nonreactive MARY KAY [facility] Comment: Interpretive Data Nonreactive: Antibodies to HCV [...] on 2019. Blood 10/26/2023 11:1 7 AM WEB INTERFACE DEVELOPER 10/26/2023 7:37 PM WEB INTERFACE DEVELOPER us Leslie Kimbrough MD LAB MICROBIOLOGY - GENERAL OR DERABLES Edited Result - Final MARY KAY [facility] [address] Department [place] [address] * Pap with reflex to High Risk HPV (02/10/2023 2:13 PM CDT) Thin prep (Pap test) 02/10/2023 2:13 PM CDT 02/15/2023 10:12 AM CDT Narrative PATHOLOGY [facility] - 02/17/2023 3:02 PM CDT EPIC results best viewed via link to PDF [place] [id number] [place], [place] ??[address] Tele: ?? Sue Beck MD - Press Puller CYTOLOGY REPORT Note to Patients: This report [...] the details. Patient Name: ??DEYSI GUERRIER Address: ??[address] [place] [address] Gender: ??F : ??2000 (Age: 22) Service: ?? Location: ?? Hospital #: ??[id number] Patient Type: ??[facility] SPECIMEN Taken: ??02/10/2023 Reported: ??02/17/2023 Physician(s): ? Leslie Kimbrough M.D. FINAL DIAGNOSIS: SOURCE OF SPECIMEN ?- ThinPrep Pap w/ reflex HPV: STATEMENT OF ADEQUACY Source: ??Cervical/Endocervical ?- Satisfactory for interpretation ?- Endocervical /Transformation Zone component present ?- Case screened using computer assisted imaging technology ? GENERAL CATEGORIZATION: ?- Negative for intraepithelial lesion or malignancy ? [facility]/02/17/2023 15:02AMOR Roldan(ASCP), CFIAC Report Reviewed and Electronically [...] MD LAB CYTOLOGY ORDERABLES Final Result PATHOLOGY [facility] Laboratory Receiving [address] [place] [address] from Last 3 Months or Most Recently Relevant to Health Maintenance Insurance [employer] PLUS [employer] PLUS [place] [id number] Advance Directives For more information, please contact: [phone] * Full Code (Latest Code Status on [...] 1:18 PM 04/27/2024 4:41 PM Care Teams Informatics Spec Relationship Specialty Start Date End Date Ed Boyle MD [address] [address] PCP - General Family Medicine 04/05/22 Leslie Kimbrough MD [address] [facility] [address] [place] [address] Consulting Physician Obstetrics and Gynecology 11/11/22
--- OUTSIDE RECORDS SUMMARY | 2024-10-04 00:09 | XMS_ITS | Encounter Summary ---
Author Organization [facility] Healthcare Address [address] [place] [id number] Care Team Providers Care Sweeper Operator Highways Name Role Phone Ed Boyle MD Primary Care Provider + Leslie Kimbrough MD Unavailable [phone] Reason for Visit * Reason Onset Date Comments Hypertension 10/02/2024 Encounter Details Date Type Department Care Team ([facility] st Contact Info) Description 10/02/2024 Nurse Triage [facility] Primary Care [address] [phone] Ed Boyle MD [address] [facility] [address] [place] [address] Social History Tobacco Use Types Packs/Day Years Used Date Smoking Tobacco: Never Smokeless Tobacco: Never AUDIT-C Answer Date Recorded Q1: How often [...] staff should administer the PHQ-9) 0 04/17/2024 [facility] [place] [facility] Occup[facility] - Occupational Stress [...] things needed for daily living? No 04/01/2024 [place] Depression Scale Answer Date Recorded [place] Depression Scale Total 5 07/17/2024 The thought [...] any time in the past 12 m [facility], were you homeless or living in a long term (including now)? No 04/01/2024 Personal Safety Answer Date Recorded Have you ever been in or are you currently in a harmful physical or emotional relationship or is someone making you feel afraid or unsafe? Denies 07/19/2024 Comments No Sex and Gender Information Value Date Recorded Sex Assigned at Not on file Legal Sex Female 9:10 AM [employer] Gender Identity Female 05/06/2021 5:33 PM CDT Sexual Orientation Not on file documented as of this encounter Miscellaneous Notes * Telephone Encounter - Sandi Campbell RN - 10/02/2024 11:10 AM CST Ginny Franco has sudden onset of vision changes including dark line as well as floaters in right eye 30 minutes ago. BP taken by coworker is 142/92 approx 20 min ago. Pt has no Hx of HTN, denies headache, no CP or cardiac s/s. Typical BP is 110/70s. Only other new symptom is clear runny nose fromleft nostril only. DISPO: Go to ED/UCC now Provider contacted via secure chat for ED disposition consult. Recommendation from provider:Send toRCC/UC or ED Reviewed PCP care advice with Ginny Franco verbalizing understanding and willingness to follow. Reason for Disposition Patient sounds very sick or weak to the triager Protocols used: Blood Pressure - Weft-Avahs-PX [employer] * Telephone Encounter - Sandi Campbell RN - 10/02/2024 10:55 AM CST Regarding: Blurred vision, floaters in right eye, BP 142/92 ----- Message from Yari Santos sent at 10/02/2024 10:52 AM [employer] ----- Symptom Based Call Chief Complaint(s): Blurred vision, floaters in right eye, BP 142/92 Duration: today What type of symptom(s) is the patient experiencing? Red Flag. Is the patient concerned they are experiencing a medical emergency requiring an ambulance? No Additional Comments: Pt says she feels off. No dizzy or lightheadedness. Does message need to be routed? Yes-Action Needed [employer] documented in this encounter Plan of Treatment Not on file documented as of this encounter Visit Diagnoses Not on filedocumented in this encounter Care Teams Sweeper Operator Highways Relationship Specialty Start Date End Date Ed Boyle MD [address] [address] PCP - General Family Medicine 04/05/22 Leslie Kimbrough MD [id number] [facility] [address] [place] [address] Consulting Physician Obstetrics and Gynecology 11/11/22 documented as of this encounter
--- OUTSIDE RECORDS SUMMARY | 2024-10-04 01:38 | XMS_ITS | Clinical Summary ---
Author Organization [facility] Medical Office Building B Address [address] [place] [address] Care Team Providers Care Animal Laboratory Helper Name Role Phone Ed Boyle MD Primary Care Provider + Leslie Kimbrough MD Unavailable [phone] Allergies Active Allergy Reactions Criticality Noted [...] nightly 90 capsule 2 2 Active 26-iron cw-crnct-uty 29 mg iron- 1 mg-200 mg capsule [...] 05/02/2023 Assessment & Plan (07/31/2024 1:32 PM HEMODIALYSIS TECHNICIAN): - stable - continue lexapro - f/u in 6 mo Assessment & Plan (08/11/2023 8:03 AM HEMODIALYSIS TECHNICIAN): - stable - continue current medication Assessment & Plan (05/02/2023 10:51 AM CDT): - uncontrolled - start lexapro 10mg daily - ref to counseling - f/u in 6 wks Gastroesophageal reflux disease without esophagi tis 08/19/2022 Assessment & Plan (07/31/2024 1:32 PM HEMODIALYSIS TECHNICIAN): - stable - continue omeprazole, famotidine Assessment & Plan (08/11/2023 8:04 AM HEMODIALYSIS TECHNICIAN): - uncontrolled - increase omeprazole to 40mg [...] loss Assessment & Plan (08/19/2022 9:22 AM HEMODIALYSIS TECHNICIAN): Chronic, takes Pepcid p.r.n. -start omeprazole 20 [...] 14 wks triage visit, neuro consult at [facility]. Normal MRI; Tylenol and Compazine prn GERD - omeprazole 40 mg daily, adds Pepcid PRN PTL - cervix /-3 at 33 weeks, nifedipine 10 q.6 until 36 weeks, received steroids 33 weeks Anemia - start daily slow FE 1st Trimester: [x] Dating Criteria: 1st tri [x] Labs: Lab Results Component Value Date HEPBSAG Nonreactive 10/26/2023 HEPCAB Nonreactive 10/26/2023 Lab Results Component Value Date [id number] Nonreactive 10/26/2023 Lab Results Component Value Date [...] 04/27/2024 Assessment & Plan (08/19/2022 9:25 AM HEMODIALYSIS TECHNICIAN): Intermittent bright red blood per rectum since [...] (08/19/2022): Added automatically from request for surgery [id number] Assessment & Plan (12/22/2022 9:51 AM CDT): Patient describes having constipation alternating with diarrhea. Colonoscopy November 2022 with biopsies negative for microscopic colitis. Suspect overflow diarrhea. -complete previously ordered stool studies Assessment & Plan (08/19/2022 9:24 AM HEMODIALYSIS TECHNICIAN): Patient describes having constipation alternating with diarrhea. [...] evaluation Assessment & Plan (08/19/2022 9:24 AM HEMODIALYSIS TECHNICIAN): Epigastric/right upper quadrant abdominal pain since March [...] a bowel movement. No improvement despite multiple goul-szd-yblxbgk laxatives including MiraLax daily and enemas. Suspect secondary to IBS-C -high-fiber diet -MiraLax daily p.r.n. -we will start Linzess 145 mcg p.o. daily (samples given) Assessment & Plan (08/19/2022 9:25 AM HEMODIALYSIS TECHNICIAN): Patient has constipation, can go up to [...] p.r.n. Assessment & Plan (08/19/2022 9:25 AM HEMODIALYSIS TECHNICIAN): Assessment & Plan (06/22/2022 4:18 PM CDT): [...] 04/27/2024 Assessment & Plan (08/11/2023 8:04 AM HEMODIALYSIS TECHNICIAN): - stable - continue current medication Assessment [...] pain. Assessment & Plan (07/31/2021 8:25 PM HEMODIALYSIS TECHNICIAN): Pt brought [facility] ab[facility] with her. She has a complex cyst of right ovary. Refill given of hydrocodone and ibuprofen. Discussed alternating medication. Note given for work. Referral to [employer] and appt obtained for this Monday. Right [...] monitor. Assessment & Plan (07/22/2021 2:13 PM HEMODIALYSIS TECHNICIAN): With palpation. Discussed options with patient. Urine [...] Department Care Team Description 10/02/2024 Nurse Triage [facility] Primary Care [facility] [address] [place] [address] Ed Boyle MD 09/26/2024 5:00 PM HEMODIALYSIS TECHNICIAN Therapy [facility] [address] [place] [address] [place] [phone] Aicha Vallejo, HEATHER Pelvic floor weakness in female (Primary Dx) 09/13/2024 Plan of Care Documentation [facility] [address] [place] [address] [place] [phone] 09/12/2024 4:00 PM HEMODIALYSIS TECHNICIAN Therapy [facility] [address] [place] [phone] Aicha Vallejo DPT Pelvic floor weakness in female (Primary Dx) 07/31/2024 1:15 PM HEMODIALYSIS TECHNICIAN Office Visit [facility] [address] [place] [address] [place] [phone] Ed Boyle MD STEVO (generalized anxiety disorder) (Primary Dx); Gastroesophageal reflux disease without esophagitis; Encounter for immunization 07/19/2024 8:42 PM HEMODIALYSIS TECHNICIAN - 07/19/2024 9:58 PM HEMODIALYSIS TECHNICIAN Emergency [facility] Emergency Department [address] [place] [address] Mastitis (Primary Dx) Discharge Disposition: Discharge to home or self care 07/17/2024 11:45 AM HEMODIALYSIS TECHNICIAN Office Visit [facility] at [address] [phone] Leslie Kimbrough MD Encounter for care and examination after delivery (Primary Dx); Pelvic floor weakness in female; Consultation for female sterilization 07/11/2024 Telephone [facility] [address] [place] [phone] Elaine Yousif MA Prior Auth from Last [...] staff should administer the PHQ-9) 0 04/17/2024 [facility] Occupat ional Health - Occupational Stress [...] things needed for daily living? No 04/01/2024 Wendell Depression Scale Answer Date Recorded Wendell Depression Scale Total 5 07/17/2024 The thought [...] any time in the past 12 m [facility], were you homeless or living in a nursing home (including now)? No 04/01/2024 Personal Safety Answer Date Recorded Have you ever been in or are you currently in a harmful physical or emotional relationship or is someone making you feel afraid or unsafe? Denies 07/19/2024 Comments No Sex and Gender Information Value Date Recorded Sex Assigned at Not on file Legal Sex Female 9:10 AM HEMODIALYSIS TECHNICIAN Gender Identity Female 05/06/2021 5:33 PM CDT [...] Raza MD Complications:None Delivery Location:This Facil ity ([facility]) Last Filed Vital Signs Vital Sign Reading Time Taken Comments Blood Pressure 112/64 07/31/2024 1:16 PM HEMODIALYSIS TECHNICIAN Pulse 74 07/31/2024 1:16 PM HEMODIALYSIS TECHNICIAN Temperature 36.4 ??C (97.6 ??F) 07/31/2024 1:16 PM CS T Respiratory Rate 20 07/31/2024 1:16 PM HEMODIALYSIS TECHNICIAN Oxygen Saturation 99% 07/31/2024 1:16 PM HEMODIALYSIS TECHNICIAN Inhaled Oxygen Concentration - - Weight 69.2 kg (152 lb 9.6 oz) 07/31/2024 1:16 P M HEMODIALYSIS TECHNICIAN Height 170.2 cm (5' 7.01 ) 07/31/2024 1:16 PM CS T Body Mass Index 23.89 07/31/2024 1:16 PM HEMODIALYSIS TECHNICIAN Plan of Treatment Health Maintenance Due Date [...] URINALYSIS, MICROSCOPIC ONLY STAT 07/19/2024 7:07 PM HEMODIALYSIS TECHNICIAN URINE CULTURE STAT 07/19/2024 7:07 PM HEMODIALYSIS TECHNICIAN URINALYSIS AND REFLEX TO MICROSCOPIC AND CULTURE STAT 07/19/2024 7:07 PM HEMODIALYSIS TECHNICIAN EGFR STAT 07/19/2024 6:59 PM HEMODIALYSIS TECHNICIAN DIFFERENTIAL AUTO STAT 07/19/2024 6:5 9 PM HEMODIALYSIS TECHNICIAN SEPSIS LACTATE WITH REFLEX Routine 07/19/2024 6:59 PM HEMODIALYSIS TECHNICIAN COMPREHENSIVE METABOLIC PANEL STAT 07/19/2024 6:59 PM HEMODIALYSIS TECHNICIAN CBC WITH AUTO DIFFERENTIAL STAT 07/19/2024 6:59 PM HEMODIALYSIS TECHNICIAN HEPATITIS C ANTIBODY Routine 10/26/2023 11:17 AM HEMODIALYSIS TECHNICIAN First trimester Elevated prolactin level PAP WITH [...] microscopic and culture Urine (07/19/2024 7:07 PM HEMODIALYSIS TECHNICIAN) Color, ur Yellow Yellow Comment:Testing performed by : [address] [address] Clarity, ur Clear Clear MARY KAY Comment:Testing performed by : [address] [address] Specific gravity, ur 1.017 1.003 - 1.030 MARY KAY Comment:Testing performed by : [address] [address] pH, urine 5.5 MARY KAY Comment: Interpretive Data ? Urine pH is affected by diet, medications, systemic acid-base disturbances, and renal tubular function. ??pH may affect urinary stone formation. ??For example, urine pH below 6.0 may help reduce the tendency for calcium phosphate stones and pH greater than 6.0 may reduce the tendency for uric acid stone formation. Source: [facility] [employer] Current Interpretive Data was last revised on 2017 Testing performed by: [facility], [address] [place] [address], [place]., [address] Protein, ur ql Negative Negative MARY KAY Comment:Testing performed by : [address], [place]., [address] Glucose, ur ql Negative Negative MARY KAY Comment:Testing performed by : [address], [place]., [address] Ketones, ur Negative Negative MARY KAY Comment:Testing performed by : [address], [place]., [address] Bilirubin, ur Negative Negative MARY KAY Comment:Testing performed by : [address], [place]., [address] Blood, ur 2+(A) Negative MARY KAY Comment:Testing performed by : [address], [place]., [address] Urobilinogen, ur <2.0 <2.0 mg/dL MARY KAY Comment:Testing performed by : [address] [address] Nitrite, ur Negative Negative MARYK AY Comment:Testing performed by : [address] [address] Leukocyte esterase, ur 2+(A) Negative MARY KAY Comment:Testing performed by : [address] [address] UA reflex comment Reflex to microscopic UA will be performed. MARY KAY Comment:Testing performed by : [address] [address] Urine 07/19/2024 7:07 PM HEMODIALYSIS TECHNICIAN 07/19/2024 7:10 PM HEMODIALYSIS TECHNICIAN Narrative MARY KAY - 07/19/2024 7:25 PM HEMODIALYSIS TECHNICIAN If patient unable to urinate, straight cath Ambrosio Conner DO LAB MICROBIOLOGY - GENERAL ORD ERABLES Final Result Performing Organization Address [facility] Co de Phone Number MARY KAY [facility] [place] [address] * (ABNORMAL) Urinalysis, microscopic only (07/19/2024 7:07 PM HEMODIALYSIS TECHNICIAN) WBC, ur 11-20(A) 0 - 5 /HPF Comment:Testing performed by : [facility], [address] [place] [address], [place]., [address] RBC, ur 3-5(A) 0 - 2 /HPF MARY KAY Comment:Testing performed by : [address], [place]., [address] Epithelial cells, squamous, ur >50(A) 0 - 5 /HPF MARY KAY Comment:Testing performed by : [facility], [address] [place] [address], [place]., [address] Mucous, ur Present(A) MARY KAY Comment:Testing performed by : [address], [place]., [address] Culture Reflex Comment Reflex to urine culture will be performed. MARY KAY Comment:Testing performed by : [address], [place]., [address] Urine 07/19/2024 7:07 PM HEMODIALYSIS TECHNICIAN 07/19/2024 7:15 PM HEMODIALYSIS TECHNICIAN us Ambrosio Conner DO LAB URINE ORDERABLES Final Res ult Performing Organization Address [facility] Co de Phone Number MARY KAY [facility] [employer] [place] [address] * Urine culture Urine (07/19/2024 7:07 PM HEMODIALYSIS TECHNICIAN) Report Final Report: Growth indicative of contamination with periurethral triny. Please submit a new specimen with special attention given to the collection process and to prompt transport to the laboratory. Comment:Testing performed by : [facility], [address] [facility], [place]., [address] Organism GROWTH INDICATES CONTAM WITH PERIURETHRAL TRINY. MARY KAY Urine 07/19/2024 7:07 PM HEMODIALYSIS TECHNICIAN 07/19/2024 9:16 PM HEMODIALYSIS TECHNICIAN Narrative MARY KAY - 07/21/2024 1:29 PM HEMODIALYSIS TECHNICIAN Urine culture reflexed based upon urinalysis results. Testing performed by [facility] Microbiology Laboratory ([phone]) Ambrosio Conner DO LAB MICROBIOLOGY - GENERAL ORD ERABLES Final Result Performing Organization Address [facility] de Phone Number [place] [id number] [place] [address] * Sepsis Lactate w/ Reflex (07/19/2024 6:59 PM HEMODIALYSIS TECHNICIAN) Sepsis Lactate 0.8 0.7 - 2.0 mmol/L Comment:Testing performed by : [facility], [address] [place] [address]., [address] Blood 07/19/2024 6:59 PM HEMODIALYSIS TECHNICIAN 07/19/2024 7:08 PM HEMODIALYSIS TECHNICIAN Ambrosio Conner DO LAB BLOOD ORDERABLES Final Res ult Performing Organization Address [facility] de Phone Number [address] [employer] [place] [address] * eGFR (07/19/2024 6:59 PM HEMODIALYSIS TECHNICIAN) eGFR >90 >=60 mL/min/1. 73 m2 Comment: [...] was last reviewed 2021. Testing performed by: [address] [address] Blood 07/19/2024 6:59 PM HEMODIALYSIS TECHNICIAN 07/19/2024 7:07 PM HEMODIALYSIS TECHNICIAN us Ambrosio Conner DO LAB BLOOD ORDERABLES Final Res ult MARY KAY [address] [facility] Department [place] [address] * (ABNORMAL) Differential, auto (07/19/2024 6:59 PM HEMODIALYSIS TECHNICIAN) Neutrophil abs 8.8(H) 1.5 - 6.5 K/cumm Comment:Testing performed by : [address] [address] Imm gran abs 0.0 0.0 - 0.1 K/cumm MARY KAY Comment:Testing performed by : [address] [address] Lymphocyte abs 1.1 0.8 - 3.3 K/cumm MARY KAY Comment:Testing performed by : [address] [address] Monocyte abs 0.5 0.2 - 0.8 K/cumm MARY KAY Comment:Testing performed by : [address] [address] Eosinophil abs 0.3 0.0 - 0.5 K/cumm MARY KAY Comment:Testing performed by : [address] [address] Basophil abs 0.1 0.0 - 0.1 K/cumm MARY KAY Comment:Testing performed by : [address] [address] Neutrophil pct 81.0 % MARY KAY Comment: Interpretive Data Percent cell count reference ranges are not reported, since discordance with absolute values may lead to misinterpretation of CBC data. Current Interpretive Data was last revised on 2017. Testing performed by: [address] [address] Imm gran pct 0.3 % MARY KAY Comment: Interpretive Data Percent cell count reference ranges are not reported, since discordance with absolute values may lead to misinterpretation of CBC data. Current Interpretive Data was last revised on 2017. Testing performed by: [address] [address] Lymphocyte pct 10.4 % MARY KAY Comment: Interpretive Data Percent cell count reference ranges are not reported, since discordance with absolute values may lead to misinterpretation of CBC data. Current Interpretive Data was last revised on 2017. Testing performed by: [address] [address] Monocyte pct 4.8 % MARY KAY Comment: Interpretive Data Percent cell count reference ranges are not reported, since discordance with absolute values may lead to misinterpretation of CBC data. Current Interpretive Data was last revised on 2017. Testing performed by: [address] [address] Eosinophil pct 3.0 % MARY KAY Comment: Interpretive Data Percent cell count reference ranges are not reported, since discordance with absolute values may lead to misinterpretation of CBC data. Current Interpretive Data was last revised on 2017. Testing performed by: [address] [address] Basophil pct 0.5 % [facility] Comment: Interpretive Data Percent cell count reference ranges are not reported, since discordance with absolute values may lead to misinterpretation of CBC data. Current Interpretive Data was last revised on 2017. Testing performed by: [address] [address] Blood 07/19/2024 6:59 PM HEMODIALYSIS TECHNICIAN 07/19/2024 7:07 PM HEMODIALYSIS TECHNICIAN us Ambrosio Conner DO LAB BLOOD ORDERABLES Final Res ult MARY KAY [address] [facility] Department [place] [address] * (ABNORMAL) CBC with auto differential (07/19/2024 6:59 PM HEMODIALYSIS TECHNICIAN) WBC 10.8(H) 3.8 - 9.9 K/cumm Comment:Testing performed by : [address] [address] Hgb 12.6 11.9 - 15.5 g/dL MARY KAY Comment:Testing performed by : [address] [address] Hct 38.3 35.6 - 45.5 % MARY KAY Comment:Testing performed by : [address] [address] Plt 250 150 - 400 K/cumm MARY KAY Comment:Testing performed by : [address] [address] MPV 10.2 9.1 - 12.3 fL MARY KAY Comment:Testing performed by : [address] [address] RBC 4.39 3.90 - 5.20 M/cumm MARY KAY Comment:Testing performed by : [address] [address] MCV 87.2 81.3 - 96.4 fL MARY KAY Comment:Testing performed by : [address] [address] MCH 28.7 27.1 - 33.3 pg MARY KAY SANTANA Comment:Testing performed by : [address] [address] MCHC 32.9 32.3 - 35.7 g/dL MARY KAY SANTANA Comment:Testing performed by : [address] [address] RDW CV 14.6 11.1 - 14.9 % MARY KAY Comment:Testing performed by : [address] [address] RDW SD 46.9 35.7 - 48.1 fL MARY KAY SANTANA Comment:Testing performed by : [address] [address] NRBC abs 0.00 0.00 - 0.01 K/cumm MARY KAY SANTANA Comment:Testing performed by : [address] [address] Blood 07/19/2024 6:59 PM HEMODIALYSIS TECHNICIAN 07/19/2024 7:07 PM HEMODIALYSIS TECHNICIAN us Ambrosio Conner DO LAB BLOOD ORDERABLES Final Res ult MARY KAY SANTANA [address] [facility] Department [place] [address] * Comprehensive metabolic panel (07/19/2024 6:59 PM HEMODIALYSIS TECHNICIAN) Sodium 138 135 - 145 mmol/L Comment:Testing performed by : [address] [address] Potassium, pl 4.0 3.3 - 4.9 mmol/L MARY KAY SANTANA Comment:Testing performed by : [address] [address] Chloride 102 97 - 110 mmol/L MARY KAY Comment:Testing performed by : [address] [address] CO2 25 22 - 32 mmol/L MARY KAY Comment:Testing performed by : [address] [address] Anion gap 11 2 - 15 mmol/L MARY KAY Comment:Testing performed by : [address] [address] BUN 11 6 - 25 mg/dL MARY KAY SANTANA Comment:Testing performed by : [address] [address] Creatinine 0.60 0.60 - 1.10 mg/dL MARY KAY SANTANA Comment:Testing performed by : [address] [address] Glucose 113 70 - 199 mg/dL MARY [...] was last revised 2022. Testing performed by: [address] [address] Calcium 9.7 8.5 - 10.3 mg/dL MARY KAY Comment:Testing performed by : [address] [address] Bilirubin, total 0.2 0.1 - 1.2 mg/dL MARY KAY Comment:Testing performed by : [address] [address] Protein, pl 7.5 6.5 - 8.5 g/dL MARY KAY Comment:Testing performed by : [address] [address] Albumin 4.5 3.5 - 5.0 g/dL MARY KAY Comment:Testing performed by : [address] [address] Alk phos 93 40 - 130 Units/L MARY KAY Comment:Testing performed by : [address] [address] ALT 24 7 - 45 Units/L MARY KAY Comment:Testing performed by : [address] [address] AST 21 10 - 45 Units/L MARY KAY Comment:Testing performed by : [address] [address] Blood 07/19/2024 6:59 PM HEMODIALYSIS TECHNICIAN 07/19/2024 7:07 PM HEMODIALYSIS TECHNICIAN Ambrosio Slowik DO LAB BLOOD ORDERABLES Final Res ult Performing Organization Address City/[facility]/ZIP Co de Phone Number [facility] [address] [facility] Department [place] [address] * Hepatitis C antibody Blood (10/26/2023 11:17 AM HEMODIALYSIS TECHNICIAN) Hep C Ab Nonreactive Nonreactive [facility] Comment: Interpretive Data Nonreactive: Antibodies to HCV [...] on 2019. Blood 10/26/2023 11:1 7 AM HEMODIALYSIS TECHNICIAN 10/26/2023 7:37 PM HEMODIALYSIS TECHNICIAN Leslie Kimbrough MD LAB MICROBIOLOGY - GENERAL OR DERABLES Edited Result - Final Performing Organization Address [facility] Co de Phone Number [facility] [address] Department [place] [address] * Pap with reflex to High Risk HPV (02/10/2023 2:13 PM CDT) Thin prep (Pap test) 02/10/2023 2:13 PM CDT 02/15/2023 10:12 AM CDT Narrative PATHOLOGY [facility] - 02/17/2023 3:02 PM CDT EPIC results best viewed via link to PDF [place] [id number] [place], [place] ??[address] Tele: ?? Sue Beck MD - Process Control Operator CYTOLOGY REPORT Note to Patients: This report [...] Name: ??DEYSI GUERRIER Address: ??[address] , [place], [place] Gender: ??F : ??2000 (Age: 22) Service: ?? Location: ?? Hospital #: ??[id number] Patient Type: ??[facility] SPECIMEN Taken: ??02/10/2023 Reported: ??02/17/2023 Physician(s): ? [...] MD LAB CYTOLOGY ORDERABLES Final Result PATHOLOGY [facility] Laboratory Receiving [address] [place] [address] from Last 3 Months or Most Recently Relevant to Health Maintenance Insurance [facility] CHOICE PLUS [facility] HMO/PPO Address: [place] [address] [facility]O Address: [place] [address] [facility] CHOICE PLUS [facility] HMO/PPO Address: [facility] [id number] [place] [address] Advance Directives For more information, please contact: [phone] * Full Code (Latest Code Status on [...] 1:18 PM 04/27/2024 4:41 PM Care Teams Animal Laboratory Helper Relationship Specialty Start Date End Date Ed Boyle MD [address] [facility] [address] [place] [address] PCP - General Family Medicine 04/05/22 Leslie Kimbrough MD [address] [facility] [address] [place] [address] Consulting Physician Obstetrics and Gynecology 11/11/22
--- OUTSIDE RECORDS SUMMARY | 2024-10-04 01:39 | XMS_ITS | Referral Summary ---
Author Organization [facility] B Address [address] [place] [phone] Care Team Providers Care Hydrogen Power Plant Manager Name Role Phone Ed Bolye MD Primary Care Provider + Leslie Kimbrough MD Unavailable Encounters Date Type Department Care Team Description 10/02/2024 Nurse Triage [facility] Primary Care [address] [place] [phone] Ed Boyle MD 09/26/2024 5:00 PM SEO SPECIALIST Therapy [facility] [address] [place] [address] [place] [phone] Aicha Vallejo DPT Pelvic floor weakness in female (Primary Dx) 09/13/2024 Plan of Care Documentation [facility] [address] [place] [address] Floor [address] [place] [phone] 09/12/2024 4:00 PM SEO SPECIALIST Therapy [facility] [address] [place] [address] Floor [address] [place] [phone] Aicha Vallejo DPT Pelvic floor weakness in female (Primary Dx) 07/31/2024 1:15 PM SEO SPECIALIST Office Visit [facility] Primary Care [address] [place] [phone] Ed Boyle MD STEVO (generalized anxiety disorder) (Primary Dx); Gastroesophageal reflux disease without esophagitis; Encounter for immunization 07/19/2024 8:42 PM SEO SPECIALIST - 07/19/2024 9:58 PM SEO SPECIALIST Emergency [facility] Emergency Department [address] [place], [place] [id number] Mastitis (Primary Dx) Discharge Disposition: Discharge to home or self care 07/17/2024 11:45 AM SEO SPECIALIST Office Visit [facility] [address] [place] [address] [address] [phone] Leslie Kimbrough MD Encounter for care and examination after delivery (Primary Dx); Pelvic floor weakness in female; Consultation for female sterilization 07/11/2024 Telephone [facility] [address] [facility] [address] [place] [phone] Elaine Yousif MA Prior Auth [...] nightly 90 capsule 2 2 Active 26-iron [id number] 29 mg iron- 1 mg-200 mg capsule [...] 05/02/2023 Assessment & Plan (07/31/2024 1:32 PM SEO SPECIALIST): - stable - continue lexapro - f/u in 6 mo Assessment & Plan (08/11/2023 8:03 AM SEO SPECIALIST): - stable - continue current medication Assessment & Plan (05/02/2023 10:51 AM CDT): - uncontrolled - start lexapro 10mg daily - ref to counseling - f/u in 6 wks Gastroesophageal reflux disease without esophagi tis 08/19/2022 Assessment & Plan (07/31/2024 1:32 PM SEO SPECIALIST): - stable - continue omeprazole, famotidine Assessment & Plan (08/11/2023 8:04 AM SEO SPECIALIST): - uncontrolled - increase omeprazole to 40mg [...] loss Assessment & Plan (08/19/2022 9:22 AM SEO SPECIALIST): Chronic, takes Pepcid p.r.n. -start omeprazole 20 [...] 14 wks triage visit, neuro consult at [facility]. Normal MRI; Tylenol and Compazine prn [...] Nonreactive 10/26/2023 Lab Results Component Value Date [id number] Nonreactive 10/26/2023 Lab Results Component Value Date [...] 04/27/2024 Assessment & Plan (08/19/2022 9:25 AM SEO SPECIALIST): Intermittent bright red blood per rectum since [...] (08/19/2022): Added automatically from request for surgery [id number] Assessment & Plan (12/22/2022 9:51 AM CDT): Patient describes having constipation alternating with diarrhea. Colonoscopy November 2022 with biopsies negative for microscopic colitis. Suspect overflow diarrhea. -complete previously ordered stool studies Assessment & Plan (08/19/2022 9:24 AM SEO SPECIALIST): Patient describes having constipation alternating with diarrhea. [...] evaluation Assessment & Plan (08/19/2022 9:24 AM SEO SPECIALIST): Epigastric/right upper quadrant abdominal pain since March [...] a bowel movement. No improvement despite multiple osxr-kfe-lxshpyf laxatives including MiraLax daily and enemas. Suspect secondary to IBS-C -high-fiber diet -MiraLax daily p.r.n. -we will start Linzess 145 mcg p.o. daily (samples given) Assessment & Plan (08/19/2022 9:25 AM SEO SPECIALIST): Patient has constipation, can go up to [...] p.r.n. Assessment & Plan (08/19/2022 9:25 AM SEO SPECIALIST): Assessment & Plan (06/22/2022 4:18 PM CDT): [...] 04/27/2024 Assessment & Plan (08/11/2023 8:04 AM SEO SPECIALIST): - stable - continue current medication Assessment [...] pain. Assessment & Plan (07/31/2021 8:25 PM SEO SPECIALIST): Pt brought [facility] abd from [facility] with her. She has a complex cyst of right ovary. Refill given of hydrocodone and ibuprofen. Discussed alternating medication. Note given for work. Referral to [facility] and appt obtained for this Monday. Right [...] monitor. Assessment & Plan (07/22/2021 2:13 PM SEO SPECIALIST): With palpation. Discussed options with patient. Urine [...] staff should administer the PHQ-9) 0 04/17/2024 [facility] - Occupational Stress Questionnaire Answer Date [...] things needed for daily living? No 04/01/2024 Pioneer Depression Scale Answer Date Recorded Pioneer Depression Scale Total 5 07/17/2024 The thought [...] any time in the past 12 m [facility], were you homeless or living in a jail (including now)? No 04/01/2024 Personal Safety Answer Date Recorded Have you ever been in or are you currently in a harmful physical or emotional relationship or is someone making you feel afraid or unsafe? Denies 07/19/2024 Comments No Sex and Gender Information Value Date Recorded Sex Assigned at Not on file Legal Sex Female 9:10 AM SEO SPECIALIST Gender Identity Female 05/06/2021 5:33 PM CDT Sexual Orientation Not on file Last Filed Vital Signs Vital Sign Reading Time Taken Comments Blood Pressure 112/64 07/31/2024 1:16 PM SEO SPECIALIST Pulse 74 07/31/2024 1:16 PM SEO SPECIALIST Temperature 36.4 ??C (97.6 ??F) 07/31/2024 1:16 PM CS T Respiratory Rate 20 07/31/2024 1:16 PM SEO SPECIALIST Oxygen Saturation 99% 07/31/2024 1:16 PM SEO SPECIALIST Inhaled Oxygen Concentration - - Weight 69.2 kg (152 lb 9.6 oz) 07/31/2024 1:16 P M SEO SPECIALIST Height 170.2 cm (5' 7.01 ) 07/31/2024 1:16 PM CS T Body Mass Index 23.89 07/31/2024 1:16 PM SEO SPECIALIST Plan of Treatment Not on file Procedures Procedure Name Priority Date/Time Associated Diagnosis Comments URINALYSIS, MICROSCOPIC ONLY STAT 07/19/2024 7:07 PM SEO SPECIALIST URINE CULTURE STAT 07/19/2024 7:07 PM SEO SPECIALIST URINALYSIS AND REFLEX TO MICROSCOPIC AND CULTURE STAT 07/19/2024 7:07 PM SEO SPECIALIST EGFR STAT 07/19/2024 6:59 PM SEO SPECIALIST DIFFERENTIAL AUTO STAT 07/19/2024 6:5 9 PM SEO SPECIALIST SEPSIS LACTATE WITH REFLEX Routine 07/19/2024 6:59 PM SEO SPECIALIST COMPREHENSIVE METABOLIC PANEL STAT 07/19/2024 6:59 PM SEO SPECIALIST CBC WITH AUTO DIFFERENTIAL STAT 07/19/2024 6:59 PM SEO SPECIALIST HEPATITIS C ANTIBODY Routine 10/26/2023 11:17 AM SEO SPECIALIST First trimester Elevated prolactin level PAP WITH [...] microscopic and culture Urine (07/19/2024 7:07 PM SEO SPECIALIST) Color, ur Yellow Yellow Comment:Testing performed by : [address] [address] Clarity, ur Clear Clear [place] Comment:Testing performed by : [address] [address] Specific gravity, ur 1.017 1.003 - 1.030 MARY [facility]AY Comment:Testing performed by : [address] [address] pH, urine 5.5 MARY [facility] Comment: Interpretive Data ? Urine pH is affected by diet, medications, systemic acid-base disturbances, and renal tubular function. ??pH may affect urinary stone formation. ??For example, urine pH below 6.0 may help reduce the tendency for calcium phosphate stones and pH greater than 6.0 may reduce the tendency for uric acid stone formation. Source: [facility] Current Interpretive Data was last revised on 2017 Testing performed by: [address] [address] Protein, ur ql Negative Negative MARY [facility]AY Comment:Testing performed by : [address] [address] Glucose, ur ql Negative Negative [facility] Comment:Testing performed by : [address] [address] Ketones, ur Negative Negative [facility] Comment:Testing performed by : [address] [address] Bilirubin, ur Negative Negative [facility] Comment:Testing performed by : [address] [address] Blood, ur 2+(A) Negative MARY [facility]AY Comment:Testing performed by : [address] [address] Urobilinogen, ur <2.0 <2.0 mg/dL MARY [facility]AY Comment:Testing performed by : [address], [place]., [address] Nitrite, ur Negative Negative MARY KAY Comment:Testing performed by : [address] [address] Leukocyte esterase, ur 2+(A) Negative [facility] Comment:Testing performed by : [address], [place]., [address] UA reflex comment Reflex to microscopic UA will be performed. [facility] Comment:Testing performed by : [address], [place]., [address] Urine 07/19/2024 7:07 PM SEO SPECIALIST 07/19/2024 7:10 PM SEO SPECIALIST Narrative MARY [facility]AY - 07/19/2024 7:25 PM SEO SPECIALIST If patient unable to urinate, straight cath us Ambrosio Conner DO LAB MICROBIOLOGY - GENERAL ORD ERABLES Final Result [facility] [address] [facility] Department [place] [address] * (ABNORMAL) Urinalysis, microscopic only (07/19/2024 7:07 PM SEO SPECIALIST) WBC, ur 11-20(A) 0 - 5 /HPF Comment:Testing performed by : [address] [address] RBC, ur 3-5(A) 0 - 2 /HPF M[facility] Comment:Testing performed by : [address] [address] Epithelial cells, squamous, ur >50(A) 0 - 5 /HPF M[facility]AY Comment:Testing performed by : [address], [place]., [address] Mucous, ur Present(A) MARY KAY Comment:Testing performed by : [address] [address] Culture Reflex Comment Reflex to urine culture will be performed. [facility] Comment:Testing performed by : [facility], [address] [place] [address]., [address] Urine 07/19/2024 7:07 PM SEO SPECIALIST 07/19/2024 7:15 PM SEO SPECIALIST Ambrosio Conner DO LAB URINE ORDERABLES Final Res ult Performing Organization Address [facility] de Phone Number [place] [id number] [facility] Department [place] [address] * Urine culture Urine (07/19/2024 7:07 PM SEO SPECIALIST) Report Final Report: Growth indicative of contamination with periurethral triny. Please submit a new specimen with special attention given to the collection process and to prompt transport to the laboratory. Comment:Testing performed by : [facility], [address] [place]., [address] Organism GROWTH INDICATES CONTAM WITH PERIURETHRAL TRINY. MARY [facility]AY Urine 07/19/2024 7:07 PM SEO SPECIALIST 07/19/2024 9:16 PM SEO SPECIALIST Narrative [facility] - 07/21/2024 1:29 PM SEO SPECIALIST Urine culture reflexed based upon urinalysis results. Testing performed by [facility] Microbiology Laboratory ([phone]) Ambrosio Conner DO LAB MICROBIOLOGY - GENERAL ORD ERABLES Final Result Performing Organization Address [facility] de Phone Number [facility] [address] [facility] Department [place] [address] * Sepsis Lactate w/ Reflex (07/19/2024 6:59 PM SEO SPECIALIST) Sepsis Lactate 0.8 0.7 - 2.0 mmol/L Comment:Testing performed by : [facility], [address] [place] [address]., [address] Blood 07/19/2024 6:59 PM SEO SPECIALIST 07/19/2024 7:08 PM SEO SPECIALIST us Ambrosio Conner DO LAB BLOOD ORDERABLES Final Res ult Performing Organization Address City/[facility]/ZIP Co de Phone Number MARY KAY [address] [facility] [place] [address] * eGFR (07/19/2024 6:59 PM SEO SPECIALIST) eGFR >90 >=60 mL/min/1. 73 m2 Comment: [...] was last reviewed 2021. Testing performed by: [facility], [address] [place] [address]., [address] Blood 07/19/2024 6:59 PM SEO SPECIALIST 07/19/2024 7:07 PM SEO SPECIALIST us Ambrosio Conner DO LAB BLOOD ORDERABLES Final Res ult Performing Organization Address City/[facility]/ZIP Co de Phone Number [facility]ARY [facility] [address] [facility] [place] [address] * (ABNORMAL) Differential, auto (07/19/2024 6:59 PM SEO SPECIALIST) Neutrophil abs 8.8(H) 1.5 - 6.5 K/cumm Comment:Testing performed by : [address] [address] Imm gran abs 0.0 0.0 - 0.1 K/cumm MARY KAY Comment:Testing performed by : [address] [address] Lymphocyte abs 1.1 0.8 - 3.3 K/cumm [facility] Comment:Testing performed by : [address] [address] Monocyte abs 0.5 0.2 - 0.8 K/cumm [facility] Comment:Testing performed by : [address] [address] Eosinophil abs 0.3 0.0 - 0.5 K/cumm [facility] Comment:Testing performed by : [address] [address] Basophil abs 0.1 0.0 - 0.1 K/cumm [facility] Comment:Testing performed by : [address] [address] Neutrophil pct 81.0 % [facility] Comment: Interpretive Data Percent cell count reference ranges are not reported, since discordance with absolute values may lead to misinterpretation of CBC data. Current Interpretive Data was last revised on 2017. Testing performed by: [address] [address] Imm gran pct 0.3 % [facility] Comment: Interpretive Data Percent cell count reference ranges are not reported, since discordance with absolute values may lead to misinterpretation of CBC data. Current Interpretive Data was last revised on 2017. Testing performed by: [address] [address] Lymphocyte pct 10.4 % [facility] Comment: Interpretive Data Percent cell count reference ranges are not reported, since discordance with absolute values may lead to misinterpretation of CBC data. Current Interpretive Data was last revised on 2017. Testing performed by: [address] [address] Monocyte pct 4.8 % MARY KAY Comment: Interpretive Data Percent cell count reference ranges are not reported, since discordance with absolute values may lead to misinterpretation of CBC data. Current Interpretive Data was last revised on 2017. Testing performed by: [address] [address] Eosinophil pct 3.0 % MARY KAY Comment: Interpretive Data Percent cell count reference ranges are not reported, since discordance with absolute values may lead to misinterpretation of CBC data. Current Interpretive Data was last revised on 2017. Testing performed by: [address] [address] Basophil pct 0.5 % MARY [facility]AY Comment: Interpretive Data Percent cell count reference ranges are not reported, since discordance with absolute values may lead to misinterpretation of CBC data. Current Interpretive Data was last revised on 2017. Testing performed by: [address] [address] Blood 07/19/2024 6:59 PM SEO SPECIALIST 07/19/2024 7:07 PM SEO SPECIALIST us Ambrosio Conner DO LAB BLOOD ORDERABLES Final Res ult [facility] [address] [facility] Department [place] [address] * (ABNORMAL) CBC with auto differential (07/19/2024 6:59 PM SEO SPECIALIST) WBC 10.8(H) 3.8 - 9.9 K/cumm Comment:Testing performed by : [address] [address] Hgb 12.6 11.9 - 15.5 g/dL MARY KAY Comment:Testing performed by : [address] [address] Hct 38.3 35.6 - 45.5 % MARY KAY Comment:Testing performed by : [address] [place] [address] Plt 250 150 - 400 K/cumm MARY KAY Comment:Testing performed by : [facility], [address] [place] [address]., [address] MPV 10.2 9.1 - 12.3 fL MARY KAY Comment:Testing performed by : [address] [address] RBC 4.39 3.90 - 5.20 M/cumm MARY KAY Comment:Testing performed by : [address] [address] MCV 87.2 81.3 - 96.4 fL MARY KAY Comment:Testing performed by : [address] [address] MCH 28.7 27.1 - 33.3 pg MARY KAY Comment:Testing performed by : [address] [address] MCHC 32.9 32.3 - 35.7 g/dL MARY KAY Comment:Testing performed by : [address], [address] RDW CV 14.6 11.1 - 14.9 % MARY KAY Comment:Testing performed by : [address], [address] RDW SD 46.9 35.7 - 48.1 fL MARY KAY Comment:Testing performed by : [address] [address] NRBC abs 0.00 0.00 - 0.01 K/cumm MARY KAY Comment:Testing performed by : [address] [address] Blood 07/19/2024 6:59 PM SEO SPECIALIST 07/19/2024 7:07 PM SEO SPECIALIST Ambrosio Conner DO LAB BLOOD ORDERABLES Final Res ult [facility]ARY [facility] [address] [facility] Department of Laboratories [place], [place] [address] * Comprehensive metabolic panel (07/19/2024 6:59 PM SEO SPECIALIST) [facility] Sodium 138 135 - 145 mmol/L Comment:Testing performed by : [address] [address] Potassium, pl 4.0 3.3 - 4.9 mmol/L MARY KAY Comment:Testing performed by : [address], [place]., [address] Chloride 102 97 - 110 mmol/L MARY KAY Comment:Testing performed by : [address], [place]., [address] CO2 25 22 - 32 mmol/L MARY KAY Comment:Testing performed by : [address], [place]., [address] Anion gap 11 2 - 15 mmol/L MARY KAY Comment:Testing performed by : [address], [place]., [address] BUN 11 6 - 25 mg/dL MARY KAY Comment:Testing performed by : [address], [place]., [address] Creatinine 0.60 0.60 - 1.10 mg/dL MARY KAY Comment:Testing performed by : [address], [place]., [address] Glucose 113 70 - 199 mg/dL [facility] Comment: Interpretive Data Fasting glucose >/= 126 [...] was last revised 2022. Testing performed by: [address] [address] Calcium 9.7 8.5 - 10.3 mg/dL MARY KAY Comment:Testing performed by : [address], [place]., [address] Bilirubin, total 0.2 0.1 - 1.2 mg/dL MARY KAY Comment:Testing performed by : [address] [address] Protein, pl 7.5 6.5 - 8.5 g/dL MARY KAY Comment:Testing performed by : [address] [address] Albumin 4.5 3.5 - 5.0 g/dL MARY KAY Comment:Testing performed by : [address] [address] Alk phos 93 40 - 130 Units/L MARY KAY Comment:Testing performed by : [address] [address] ALT 24 7 - 45 Units/L MARY KAY Comment:Testing performed by : [address] [address] AST 21 10 - 45 Units/L MARY KAY Comment:Testing performed by : [address] [address] Blood 07/19/2024 6:59 PM SEO SPECIALIST 07/19/2024 7:07 PM SEO SPECIALIST Ambrosio Conner DO LAB BLOOD ORDERABLES Final Res ult MARY KAY [address] [facility] Department [place] [address] * Hepatitis C antibody Blood (10/26/2023 11:17 AM SEO SPECIALIST) Hep C Ab Nonreactive Nonreactive MARY KAY [facility] Comment: Interpretive Data Nonreactive: Antibodies to HCV [...] on 2019. Blood 10/26/2023 11:1 7 AM SEO SPECIALIST 10/26/2023 7:37 PM SEO SPECIALIST us Leslie Kimbrough MD LAB MICROBIOLOGY - GENERAL OR DERABLES Edited Result - Final MARY KAY [facility] [address] Department [place] [address] * Pap with reflex to High Risk HPV (02/10/2023 2:13 PM CDT) Thin prep (Pap test) 02/10/2023 2:13 PM CDT 02/15/2023 10:12 AM CDT Narrative PATHOLOGY [facility] - 02/17/2023 3:02 PM CDT EPIC results best viewed via link to PDF [place] [id number] [place], [place] ??[address] Tele: ?? Sue Beck MD - Media Clerk CYTOLOGY REPORT Note to Patients: This report [...] the details. Patient Name: ??DEYSI GUERRIER Address: ??[address] [place] [address] Gender: ??F : ??2000 (Age: 22) Service: ?? Location: ?? Hospital #: ??[id number] Patient Type: ??[facility] SPECIMEN Taken: ??02/10/2023 Reported: ??02/17/2023 Physician(s): ? Leslie Kimbrough M.D. FINAL DIAGNOSIS: SOURCE OF SPECIMEN ?- ThinPrep Pap w/ reflex HPV: STATEMENT OF ADEQUACY Source: ??Cervical/Endocervical ?- Satisfactory for interpretation ?- Endocervical /Transformation Zone component present ?- Case screened using computer assisted imaging technology ? GENERAL CATEGORIZATION: ?- Negative for intraepithelial lesion or malignancy ? [facility] [place]/02/17/2023 15:02AMOR Roldan(ASCP), CFIAC Report Reviewed and Electronically [...] MD LAB CYTOLOGY ORDERABLES Final Result PATHOLOGY [facility] Laboratory Receiving [address] [place] [address] from Last 3 Months or Most Recently Relevant to Health Maintenance Insurance [facility] CHOICE PLUS [facility] CHOICE PLUS [facility] CHOICE PLUS [place] [id number] Advance Directives For more information, please contact: [phone] * Full Code (Latest Code Status on [...] 1:18 PM 04/27/2024 4:41 PM Care Teams Hydrogen Power Plant Manager Relationship Specialty Start Date End Date Ed Boyle MD [address] [address] PCP - General Family Medicine 04/05/22 Leslie Kimbrough MD [address] [facility] [address] [place] [address] Consulting Physician Obstetrics and Gynecology 11/11/22
--- OUTSIDE RECORDS SUMMARY | 2024-10-04 01:39 | XMS_ITS | Patient Health Summary ---
Author Organization [facility] Address [address] [facility] [place] [address] Care Team Providers Care Hybrid Corn Breeder Name Role Phone Ed Boyle MD Primary Care Provider + Note from [facility],non-owned Affiliates and Associated Physician Practices is amultiple site organization consisting of ambulatory clinics and hospital sitesin [place], [place], [place] and [place]. This disclosure is being madepursuant to the Care Everywhere program and may not contain all information available regarding this patient. Last updated 18.[facility] Allergies No known active allergies Medications * Be aware that medications may not be up to date on this document. Alwaysverify current medications with the patient. * escitalopram (Lexapro) 10 MG tablet Take 1 (one) tablet by mouth once daily * omeprazole (PriLOSEC) 40 MG capsule Take 1 (one) capsule by mouth daily before breakfast * ondansetron, disintegrating, (Zofran ODT) 4 MG tablet(Started 08/17/2024) Take 1 (one) tablet by mouth every 6 hours as needed for Nausea/Vomiting Allow tablet to dissolve on the tongue * hydrOXYzine HCl (Atarax) 25 MG tablet(Started 08/17/2024) Take 1 (one) tablet by mouth every 6 hours as needed for Itching Social History Tobacco Use Types Packs/Day Years Used Date Smoking Tobacco: Never Smokeless Tobacco: Never Tobacco Cessation:Counseling Given: Not Answered Sex and Gender Information Value Date Recorded Sex Assigned at Not on file Gender Identity Not on file Sexual Orientation Not on file Last Filed Vital Signs Vital Sign Reading Time Taken Comments Blood Pressure 116/84 10/02/2024 6:10 PM MEDICINE AIDE Pulse 82 10/02/2024 6:10 PM MEDICINE AIDE Temperature 36.1 ??C (97 ??F) 10/02/2024 6:10 PM MEDICINE AIDE Respiratory Rate 18 10/02/2024 6:10 PM MEDICINE AIDE Oxygen Saturation 98% 10/02/2024 6:10 PM MEDICINE AIDE Inhaled Oxygen Concentration - - Weight 68 kg (150 lb) 10/02/2024 4:03 PM MEDICINE AIDE Height 170.2 cm (5' 7 ) 10/02/2024 4:03 PM MEDICINE AIDE Body Mass Index 23.49 10/02/2024 4:03 PM MEDICINE AIDE Care Teams Hybrid Corn Breeder Relationship Specialty Start Date End Date Ed Boyle MD [address] [place] [id number] PCP - General Family Medicine 08/17/24
--- OUTSIDE RECORDS SUMMARY | 2024-10-04 01:39 | XMS_ITS | Encounter Summary ---
Author Organization [facility] Address [address] [place] [address] Care Team Providers Care Rn Dialysis Name Role Phone Ed Boyle MD Primary Care Provider + Reason for Visit * Reason Comments Eye Problem Pt ambulatory to ED for R eye problem from OSH ([facility]). C/o of double vision with horizontal line half way through visual field. Floaters and blurriness. Noticed drainage from nose early this morning, blew nose and noticed visual changes shortly after. Denies trauma to the eye. A&Ox4. Encounter Details Date Type Department Care Team (Late st Contact Info) Description 10/02/2024 10:23 PM BACON SKIN LIFTER - 10/02/2024 11:55 PM BACON SKIN LIFTER Emergency [facility] EMERGENCY DEPARTMENT [address] [place] [phone] Discharge Disposition: Left Against Medical Advice/Discontinued Care Social History Tobacco Use Types Packs/Day Years Used Date Smoking Tobacco: Never Smokeless Tobacco: Never Sex and Gender Information Value Date Recorded Sex Assigned at Not on file Gender Identity Not on file Sexual Orientation Not on file documented as of this encounter Last Filed Vital Signs Vital Sign Reading Time Taken Comments Blood Pressure 116/84 10/02/2024 6:10 PM BACON SKIN LIFTER Pulse 82 10/02/2024 6:10 PM BACON SKIN LIFTER Temperature 36.1 ??C (97 ??F) 10/02/2024 6:10 PM BACON SKIN LIFTER Respiratory Rate 18 10/02/2024 6:10 PM BACON SKIN LIFTER Oxygen Saturation 98% 10/02/2024 6:10 PM BACON SKIN LIFTER Inhaled Oxygen Concentration - - Weight 68 kg (150 lb) 10/02/2024 4:03 PM BACON SKIN LIFTER Height 170.2 cm (5' 7 ) 10/02/2024 4:03 PM BACON SKIN LIFTER Body Mass Index 23.49 10/02/2024 4:03 PM BACON SKIN LIFTER documented in this encounter Medications at Time of Discharge Medication Sig Dispensed Refills Start Date End Date escitalopram (Lexapro) 10 MG tablet Take 1 (one) tablet by mouth once daily hydrOXYzine HCl (Atarax) 25 MG tablet Take 1 (one) tablet by mouth every 6 hours as needed for Itching 10 tablet 08/17/2024 omeprazole (PriLOSEC) 40 MG capsule Take 1 (one) capsule by mouth daily before breakfast ondansetron, disintegrating, (Zofran ODT) 4 MG tablet Take 1 (one) tablet by mouth every 6 hours as needed for Nausea/Vomiting Allow tablet to dissolve on the tongue 10 tablet 08/17/2024 documented as of this encounter ED Notes * Leigh Flowers - 10/02/2024 10:15 PM CST Call x 3 patient left AMA. When patient was last seen they were alert and oriented x 4. AMA signed and uploaded N SKIN LIFTER * Leigh Flowers - 10/02/2024 9:39 PM CST Call x 2 N SKIN LIFTER * Leigh Flowers - 10/02/2024 8:46 PM CST Call x 1 N SKIN LIFTER * Jaycee Franco - 10/02/2024 5:07 PM CST Pt in WR w/ no complaints att N SKIN LIFTER * Kathryn Reese APRN-CNP - 10/02/2024 4:36 PM CST Medical Screening Exam 10/02/2024 4:36 PM Provider contact with the patient Ginny Franco CC: Eye Problem (Pt ambulatory to ED for R eye problem from OSH ([facility]). C/o of double vision with horizontal line half way through visual field. Floaters and blurriness. Noticed drainage from nose early this morning, blew nose and noticed visual changes shortly after. Denies trauma to the eye. A&Ox4. ) Chief complaint narrative was entered by triage nurse, not by provider Provider in Triage HPI: Ginny Franco is a 24 year old female PMH as noted below who presents withright eye vision changes after blowing her nose earlier today. Reports seeing a horizontal light, floaters and blurriness. Patient is a transfer from [facility]. Limited Chart History: No past medical history on file. No past surgical history on file. No current facility-administered medications for this encounter. Current Outpatient Medications Medication Sig Dispense Refill escitalopram (Lexapro) 10 MG tablet Take 1 (one) tablet by mouth once daily hydrOXYzine HCl (Atarax) 25 MG tablet Take 1 (one) tablet by mouth every 6 hours as needed for Itching 10 tablet 0 omeprazole (PriLOSEC) 40 MG capsule Take 1 (one) capsule by mouth daily before breakfast ondansetron, disintegrating, (Zofran ODT) 4 MG tablet Take 1 (one) tablet by mouth every 6 hours asneeded for Nausea/Vomiting Allow tablet to dissolve on the tongue 10 tablet 0 No Known Allergies PCP: Ed Boyle MD (Above may be pending completion) Review of Systems: Primary System Noted in HPI. All other systems reviewed and are negative. Vital Signs reviewed in Triage BP 125/97 Pulse 93 Temp 98.2 ??F (36.8 ??C) (Temporal) Resp 18 Ht 1.702 m (5' 7 ) Wt 68 kg (150 lb) SpO2 100% Pertinent Physical Findings: Constitutional: vitals as above, Head: Head normocephalic, atraumatic Resp: respirations even and unlabored CV: Heart RRR Abd: nondistended Skin: warm, dry,color normal for ethnicity MSK: ambulatory, moves all extremities Neuro: A&O x 3 Psych: Normal affect Complete physical exam is limited due to patient sitting in up right position in chair MDM: I have reviewed all lab and imaging resulted ordered during this visit and available at the time ofthis note. Triage notes and available nursing notes reviewed. Previous medical record reviewed whenavailable. Management options include but not limited to: physical exam, laboratory testing, discussion with other providers. PLAN Diagnostic tests ordered: No orders of the defined types were placed in this encounter. MEDICATIONS FOR CURRENT ENCOUNTER: SCHEDULED MEDICATIONS: No current facility-administered medications for this encounter. CONTINUOUS MEDICATIONS: No current facility-administered medications for this encounter. PRN MEDICATIONS: No current facility-administered medications for this encounter. Clinical Impression: Right eye vision changes Based on the Medical Screening Exam performed and diagnostic tests at this time, further evaluationis indicated and will be performed. Patient will be transferred to a main ED room when one is available and care will be transferred to ER provider. PADMINI Cadena N SKIN LIFTER documented in this encounter Plan of Treatment Not on file documented as of this encounter Visit Diagnoses Not on filedocumented in this encounter Care Teams Rn Dialysis Relationship Specialty Start Date End Date Ed Boyle MD [address] [place] [id number] PCP - General Family Medicine 08/17/24 documented as of this encounter
--- OUTSIDE RECORDS SUMMARY | 2024-10-04 01:39 | XMS_ITS | Clinical Summary ---
Author Organization [facility] [employer] Address [address] [place] [address] Care Team Providers Care Television Maintenance Worker Name Role Phone Ed Boyle MD Primary Care Provider + Source Comments [facility],non-owned Affiliates and Associated Physician Practices is amultiple site organization consisting of ambulatory clinics and hospital sitesin [place], [place], [place] and [place]. This disclosure is being madepursuant to the Care Everywhere program and may not contain all information available regarding this patient. Last updated 18.[employer] [employer] Allergies No known active allergies Medications * Be aware that medications may not be up to date on this document. Alwaysverify current medications with the patient. Medication Sig Dispensed Refills Start Date End Date Status escitalopram (Lexapro) 10 MG tablet Take 1 (one) tablet by mouth once daily Active omeprazole (PriLOSEC) 40 MG capsule Take 1 (one) capsule by mouth daily before breakfast Active ondansetron, disintegrating, (Zofran ODT) 4 MG tablet Take 1 (one) tablet by mouth every 6 hours as needed for Nausea/Vomiting Allow tablet to dissolve on the tongue 10 tablet 08/17/2024 Active hydrOXYzine HCl (Atarax) 25 MG tablet Take 1 (one) tablet by mouth every 6 hours as needed for Itching 10 tablet 08/17/2024 Active Encounters Date Type Department Care Team Description 10/02/2024 10:23 PM EYEGLASS MAKER - 10/02/2024 11:55 PM [facility] Emergency [facility] EMERGENCY DEPARTMENT [address] [place] [phone] Discharge Disposition: Left Against Medical Advice/Discontinued Care 10/02/2024 Travel 10/02/2024 Telephone [facility] - Ophthalmology [address] [place] [address] Erwin Boswell, Eye Problem 08/17/2024 5:53 PM EYEGLASS MAKER - 08/17/2024 7:57 PM EYEGLASS MAKER Emergency ER at [address] [address] Jb Velasquez MD Panic attack Discharge Disposition: Home or Self Care 08/17/2024 Travel from Last 3 Months Social History Tobacco Use Types Packs/Day Years Used Date Smoking Tobacco: Never Smokeless Tobacco: Never Tobacco Cessation:Counseling Given: Not Answered Sex and Gender Information Value Date Recorded Sex Assigned at Not on file Gender Identity Not on file Sexual Orientation Not on file Last Filed Vital Signs Vital Sign Reading Time Taken Comments Blood Pressure 116/84 10/02/2024 6:10 PM EYEGLASS MAKER Pulse 82 10/02/2024 6:10 PM EYEGLASS MAKER Temperature 36.1 ??C (97 ??F) 10/02/2024 6:10 PM EYEGLASS MAKER Respiratory Rate 18 10/02/2024 6:10 PM EYEGLASS MAKER Oxygen Saturation 98% 10/02/2024 6:10 PM EYEGLASS MAKER Inhaled Oxygen Concentration - - Weight 68 kg (150 lb) 10/02/2024 4:03 PM EYEGLASS MAKER Height 170.2 cm (5' 7 ) 10/02/2024 4:03 PM EYEGLASS MAKER Body Mass Index 23.49 10/02/2024 4:03 PM EYEGLASS MAKER Plan of Treatment Health Maintenance Due Date Last Done Comments PAP SMEAR 1998 HIV SCREENING 2013 HPV VACCINE (1 - 3-dose series) 2013 HEPATITIS C SCREENING 08/13/2016 DTAP/TDAP/TD VACCINES (1 - Tdap) 2017 HEPATITIS B VACCINE (1 of 3 - 19+ 3-dose series) 2017 COVID-19 VACCINE (4 - season) 2024 07/19/2021, 12/31/2020, 12/10/2020 DEPRESSION SCREENING 09/11/2024 ZOSTER VACCINE (1 of 2) 2048 INFLUENZA VACCINE Completed 07/31/2024, , 06/21/2022, Additional history exists HIB VACCINE Aged Out No longer eligi ble based on patient's age to complete this topic MENINGOCOCCAL (Group B) VACCINE Aged Out No longer eligible based on patient's age to complete this topic MENINGOCOCCAL VACCINE Aged Out No sidra mark eligible based on patient's age to complete this topic PNEUMOCOCCAL VACCINE Aged Out No long er eligible based on patient's age to complete this topic Care Teams Television Maintenance Worker Relationship Specialty Start Date End Date Ed Boyle MD [address] [place] [id number] PCP - General Family Medicine 08/17/24
--- OUTSIDE RECORDS SUMMARY | 2024-10-04 01:39 | XMS_ITS | Encounter Summary ---
Author Organization [facility] Address [facility] [place] [address] Care Team Providers Care Spool Fixer Name Role Phone Ed Boyle MD Primary Care Provider + Encounter Details Date Type Department Care Team (Latest Contact Info) Description 10/02/2024 Travel Social History Tobacco Use Types Packs/Day Years Used Date Smoking Tobacco: Never Smokeless Tobacco: Never Sex and Gender Information Value Date Recorded Sex Assigned at Not on file Gender Identity Not on file Sexual Orientation Not on file documented as of this encounter Plan of Treatment Not on file documented as of this encounter Visit Diagnoses Not on filedocumented in this encounter Care Teams Spool Fixer Relationship Specialty Start Date End Date Ed Boyle MD [address] [place] [id number] PCP - General Family Medicine 08/17/24 documented as of this encounter
--- OUTSIDE RECORDS SUMMARY | 2024-10-04 01:39 | XMS_ITS | Referral Summary ---
Author Organization [facility] Address [address] [place] [address] Care Team Providers Care Archeology Faculty Member Name Role Phone Ed Boyle MD Primary Care Provider + Source Comments [facility],non-owned Affiliates and Associated Physician Practices is amultiple site organization consisting of ambulatory clinics and hospital sitesin [place], [place], [place]. This disclosure is being madepursuant to the Care Everywhere program and may not contain all information available regarding this patient. Last updated 18.[facility] Encounters Date Type Department Care Team Description 10/02/2024 Travel 10/02/2024 10:23 PM RIGGING LOFT REPAIRER - 10/02/2024 11:55 PM [facility] Emergency [facility] EMERGENCY DEPARTMENT [address] [place] [phone] Discharge Disposition: Left Against Medical Advice/Discontinued Care 10/02/2024 Telephone [facility] - Ophthalmology [address] [place] [phone] Erwin Boswell, Eye Problem 08/17/2024 Travel 08/17/2024 5:53 PM RIGGING LOFT REPAIRER - 08/17/2024 7:57 PM [facility] Emergency ER at [address] [address] Jb Velasquez MD Panic attack Discharge Disposition: Home or Self Care from Last 3 Months Allergies No known active allergies Medications * [...] needed for Itching 10 tablet 08/17/2024 Active Social History Tobacco Use Types Packs/Day Years Used Date Smoking Tobacco: Never Smokeless Tobacco: Never Tobacco Cessation:Counseling Given: Not Answered Sex and Gender Information Value Date Recorded Sex Assigned at Not on file Gender Identity Not on file Sexual Orientation Not on file Last Filed Vital Signs Vital Sign Reading Time Taken Comments Blood Pressure 116/84 10/02/2024 6:10 PM RIGGING LOFT REPAIRER Pulse 82 10/02/2024 6:10 PM RIGGING LOFT REPAIRER Temperature 36.1 ??C (97 ??F) 10/02/2024 6:10 PM RIGGING LOFT REPAIRER Respiratory Rate 18 10/02/2024 6:10 PM RIGGING LOFT REPAIRER Oxygen Saturation 98% 10/02/2024 6:10 PM RIGGING LOFT REPAIRER Inhaled Oxygen Concentration - - Weight 68 kg (150 lb) 10/02/2024 4:03 PM RIGGING LOFT REPAIRER Height 170.2 cm (5' 7 ) 10/02/2024 4:03 PM RIGGING LOFT REPAIRER Body Mass Index 23.49 10/02/2024 4:03 PM RIGGING LOFT REPAIRER Plan of Treatment Not on file Care Teams Archeology Faculty Member Relationship Specialty Start Date End Date Ed Boyle MD [address] [place] [phone] PCP - General Family Medicine 08/17/24
--- OUTSIDE RECORDS SUMMARY | 2024-10-04 01:39 | XMS_ITS | Encounter Summary ---
Author Organization [facility] Address [address] [place] [address] Care Team Providers Care Spark Plug Assembler Name Role Phone Ed Boyle MD Primary Care Provider + Reason for Visit * Reason Onset Date Comments Eye Problem 10/02/2024 Encounter Details Date Type Department Care Team (Late st Contact Info) Description 10/02/2024 Telephone [facility] - Ophthalmology [address] [place] [address] Erwin Boswell DO [address] [facility] [place] [phone] Eye Problem Social History Tobacco Use Types Packs/Day Years Used Date Smoking Tobacco: Never Smokeless Tobacco: Never Sex and Gender Information Value Date Recorded Sex Assigned at Not on file Gender Identity Not on file Sexual Orientation Not on file documented as of this encounter Miscellaneous Notes * Telephone Encounter - Erwin Boswell DO - 10/02/2024 1:33 PM CST Transfer Center Call Summary Called by transfer center regarding Ginny Franco, a 24 year old female currently in the [place] ED. Per [facility] care team, 10am black band started in central vision OD 20/[address] normal B scan normal? Flashes and floaters have both improved Reminded provider that we cannot fully exclude vision-threatening or life- threatening problems via remote evaluation. While we can offer recommendations based on the information provided to us, decision-making is ultimately the provider's responsibility and we would be happy to evaluate the patientmore urgently if the provider and patient so choose. Plan: Recommend transfer to [facility]/ for further ophthalmic evaluation. Erwin Boswell DO Ophthalmology Resident 10/02/2024 12:19 PM OR BIOSTATISTICIAN/GROUP LEADER documented in this encounter Plan of Treatment Not on file documented as of this encounter Visit Diagnoses Not on filedocumented in this encounter Care Teams Spark Plug Assembler Relationship Specialty Start Date End Date Ed Boyle MD [address] [place] [phone] PCP - General Family Medicine 08/17/24 documented as of this encounter
--- OUTSIDE RECORDS SUMMARY | 2024-10-04 01:39 | XMS_ITS | Encounter Summary ---
Author Organization [facility] Address [address] [place] [phone] Care Team Providers Care Home Theater Specialist Name Role Phone Ed Boyle MD Primary Care Provider + Leslie Kimbrough MD Unavailable [phone] Reason for Visit * Reason Onset Date Comments Hypertension 10/02/2024 Encounter Details Date Type Department Care Team ([facility] st Contact Info) Description 10/02/2024 Nurse Triage [facility] Medical Group Primary Care [address] [phone] Ed Boyle MD [address] [facility] [address] [place] [address] Social History Tobacco Use Types [...] staff should administer the PHQ-9) 0 04/17/2024 [facility] of Occupat ional Health - Occupational Stress [...] things needed for daily living? No 04/01/2024 [place] Depression Scale Answer Date Recorded [place] Depression Scale Total 5 07/17/2024 The thought [...] any time in the past 12 m [facility], were you homeless or living in [...] on file Legal Sex Female 9:10 AM ORGAN TUNER ELECTRONIC Gender Identity Female 05/06/2021 5:33 PM CDT [...] the triager Protocols used: Blood Pressure - [id number] N TUNER ELECTRONIC * Telephone Encounter - Sandi Campbell RN - 10/02/2024 10:55 AM CST Regarding: Blurred vision, floaters in right eye, BP 142/92 ----- Message from Yari Santos sent at 10/02/2024 10:52 AM ORGAN TUNER ELECTRONIC ----- Symptom Based Call Chief Complaint(s): Blurred vision, floaters in right eye, BP 142/92 Duration: today What type of symptom(s) is the patient experiencing? Red Flag. Is the patient concerned they are experiencing a medical emergency requiring an ambulance? No Additional Comments: Pt says she feels off. No dizzy or lightheadedness. Does message need to be routed? Yes-Action Needed N TUNER ELECTRONIC documented in this encounter Plan of Treatment Not on file documented as of this encounter Visit Diagnoses Not on filedocumented in this encounter Care Teams Home Theater Specialist Relationship Specialty Start Date End Date Ed Boyle MD [address] [address] PCP - General Family Medicine 04/05/22 Leslie Kimbrough MD [address] [facility] [address] [place] [address] Consulting Physician Obstetrics and Gynecology 11/11/22 documented as of this encounter
== END 2024-10-02 15:15 | disposition short-term general hospital (02) ==
LOC: ANHED 13:58
PROVIDERS: Emergency Provider Emergency Medicine; PCP Family Medicine
DX: H43.391 Other vitreous opacities, right eye (principal); H53.8 Other visual disturbances
CPT/HCPCS: 70450; 99283; 99284